=== PATIENT | male | born 1995 | race Caucasian/White ===

== ENCOUNTER 2016-06-21 16:08 | Emergency (ER) | payer SELFPAY ==
--- NOTE | 2016-06-21 18:01 | EDM.PDOC ---
ED HPI GI/ABDOMINAL - General Chief Complaint: Gastrointestinal Problem Stated Complaint: RECTAL BLEEDING Time Seen by Provider: 06/21/16 17:20 Source of Information: Reports: Patient History Limitations: Reports: No limitations - History of Present Illness INITIAL COMMENTS - FREE TEXT/NARRATIVE: Patient is a 21-year-old male who presents to the ED complaining of rectal bleeding. Patient states approximately 5 days ago after having a large bowel movement described as being hard, requiring straining, and painful he had noted blood with wiping. States since then he's noticed blood with wiping and on the stool after each bowel movement. Notes increased pain which each bowel movement. Continues to have hard formed stools with straining required. Describes the pain to his rectum as a burning sensation. He utilized no over- the-counter medications. He has no prior history of similar symptoms. He has no history of hemorrhoids. In addition has intermittent abdominal cramping prior to having a bowel movement. This relieved with having a bowel movement. Denies any nausea/vomiting, painful urination, fever/chills, or any additional complaints. 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 [No Known Home Meds] 06/21/16 [History] Past Medical History HEENT History: Reports: Impaired vision Other HEENT History: glassess Cardiovascular History: Reports: Other (see below) Other Cardiovascular History: Patient states "5 years ago I had a minor heart attack. I was supposed to follow up with a concrete handler but I didnt. I have an irregular heart rhythm." Musculoskeletal History: Reports: Other (see below) Other Musculoskeletal History: "Broken foot, ankle, tib/fib" - Infectious Disease History Infectious Disease History: Reports: C-difficile Social & Family History - Tobacco Use Smoking Status *Q: Current Every Day Smoker Years of Tobacco use: 6 Packs/Tins Daily: 0.5 - Caffeine Use Caffeine Use: Reports: None - Recreational Drug Use Recreational Drug Use: No ED ROS GENERAL - Review of Systems Review Of Systems: See Below Constitutional: Denies: fever, chills, malaise, weakness, decreased appetite Respiratory: Denies: Shortness of Breath, Cough, Sputum Cardiovascular: Denies: Chest pain, Lightheadedness, Palpitations GI/Abdominal: Reports: Bloody stool, Constipation. Denies: Abdominal pain ( currently), Black stool, Decreased appetite, Distension, Flatus, Melena, Nausea , Stool incontinence, Vomiting : Reports: no symptoms Musculoskeletal: Reports: no symptoms ED EXAM, GI/ABD - Physical Exam Exam: See Below Exam Limited By: No limitations General Appearance: alert, WD/WN, no apparent distress Ears: hearing grossly normal Nose: normal inspection Throat/Mouth: Normal voice, No airway compromise Neck: normal inspection, supple Respiratory/Chest: no respiratory distress, lungs clear, normal breath sounds, no accessory muscle use Cardiovascular: normal peripheral pulses, regular rate, rhythm GI/Abdominal: normal bowel sounds, soft, non tender Rectal (Males) Exam: Normal exam, Normal rectal tone, Prostate normal, Heme - stool, Tenderness (rectum 6 oclock). No: Hemorrhoids, Perirectal abscess Back Exam: normal inspection, full range of motion. No: CVA tenderness (L), CVA tenderness (R) Neurological: alert, oriented, CN II-XII intact, normal cognition Psychiatric: normal affect, normal mood Skin Exam: Warm, Dry, Intact, Normal color Course - Vital Signs Last Recorded V/S: Last Vital Signs Temp Pulse 90 06/21/16 16:16 Resp 16 06/21/16 16:16 BP 138/81 06/21/16 16:16 Pulse Ox 98 06/21/16 16:16 - Re-Assessments/Exams Free Text/Narrative Re-Assessment/Exam: Exam elicited mild pain to the posterior rectum. No concerning external findings noted. Hemoccult was negative. Findings and history consistent with mild rectal tear 2nd to constipation. No further testing or treatment required. Will discharge home with instructions as documented. 06/21/16 17:59 Departure - Departure Time of Disposition: 18:01 Disposition: Home, Self-Care 01 Condition: good Clinical Impression: Anal or rectal pain, Bleeding per rectum Constipation Qualifiers: Constipation type: unspecified constipation type Qualified Code(s): K59.00 - Constipation, unspecified Instructions: Constipation, Adult, Fozi-of-Hjej Referrals: PCP,None [Primary Care Provider] - Abel Montilla PA-C [Physician Division Chair] - Joseph Pena MD [Physician] - Forms: ED Department Discharge Additional Instructions: Start taking MiraLax one capful daily with copious amounts of water for the next 6 weeks. Take Colace 100 mg twice a day for the next 5 days. Increase fiber intake. Increase exercise. Followup with primary care provider of your choice at [facility] in the next week or two for further evaluation and treatment. If symptoms are not improving suggest following up with Dr. Pena General Surgeon. Return to the E.D. as needed for any new or worsening symptoms. Stop smoking.
== END 2016-06-21 18:30 | disposition home or self-care (01) ==
LOC: JD.ED 16:08
CPT/HCPCS: 99282; 99283

== ENCOUNTER 2016-10-11 19:33 | Emergency (ER) | payer MEDICAID ==
[2016-10-11 19:40] VITALS: BP 142/80
[2016-10-11] MEDS ORDERED: Famotidine 20 MG/2 ML SDV IVPUSH ONE (19:48)
--- NOTE | 2016-10-11 19:48 | EDM.PDOC ---
ED HPI GENERAL MEDICAL PROBLEM - General Chief Complaint: Abdominal Pain Stated Complaint: [facility] Time Seen by Provider: 10/11/16 19:41 - History of Present Illness INITIAL COMMENTS - FREE TEXT/NARRATIVE: 21-year-old male presents emergency room intoxicated complaining of belly pain. Patient drinks on a regular basis has been perhaps drinking more so today however he's been off his stomach medications for the last for 5 days. The stomach medications he was taking he cannot recall the name of he got them from a friend. The patient was post as stomach surgery over a month ago in [place] but couldn't get there for it. The patient hasn't had any recent nausea or vomiting diarrhea or constipation patient denies any recent black or tarry stools however he states about a month and a half ago he did have an episode where his vomiting some blood. This is not occurred on a recent basis patient denies any drugs prescription or otherwise at this time other than his alcohol that he uses daily. Abdominal Pain Score (Numeric/FACES): 6 - Related Data Allergies Allergy/AdvReac Type Severity Reaction Status Date / Time No Known Allergies Allergy Verified 10/11/16 19:36 Home Meds: Home Meds . [No Known Home Meds] 06/21/16 [History] Past Medical History HEENT History: Reports: Impaired Vision Other HEENT History: glassess Cardiovascular History: Reports: Other (See Below) Other Cardiovascular History: Patient states "5 years ago I had a minor heart attack. I was supposed to follow up with a gas station service attendant but I didnt. I have an irregular heart rhythm." Musculoskeletal History: Reports: Other (See Below) Other Musculoskeletal History: "Broken foot, ankle, tib/fib" - Infectious Disease History Infectious Disease History: Reports: C-Difficile Social & Family History - Tobacco Use Smoking Status *Q: Current Every Day Smoker Years of Tobacco use: 6 Packs/Tins Daily: 0.5 - Caffeine Use Caffeine Use: Reports: None - Recreational Drug Use Recreational Drug Use: No ED ROS GENERAL - Review of Systems Review Of Systems: See Below Constitutional: Reports: No Symptoms HEENT: Reports: No Symptoms Respiratory: Reports: No Symptoms Cardiovascular: Reports: No Symptoms Endocrine: Reports: No Symptoms GI/Abdominal: Reports: Abdominal Pain. Denies: Constipation, Diarrhea, Nausea, Vomiting : Reports: No Symptoms Psychiatric: Denies: Homicidal Ideation, Mood Lability, Suicidal Ideation ED EXAM, GI/ABD - Physical Exam Exam: See Below Exam Limited By: Intoxication General Appearance: Alert, No Apparent Distress Ears: Normal External Exam, Normal Canal, Hearing Grossly Normal, Normal TMs Nose: Normal Inspection, Normal Mucosa, No Blood Throat/Mouth: Normal Inspection, Normal Lips, Normal Teeth, Normal Gums, Normal Oropharynx, Normal Voice, No Airway Compromise Head: Atraumatic, Normocephalic Neck: Normal Inspection, Supple, Non-Tender, Full Range of Motion Respiratory/Chest: No Respiratory Distress, Lungs Clear, Normal Breath Sounds Cardiovascular: Regular Rate, Rhythm, No Edema, No Murmur GI/Abdominal: Normal Bowel Sounds, Soft, Tenderness (She has significant tenderness in the epigastric and left upper quadrant region). No: Distention, Guarding, Rebound Back Exam: Normal Inspection, Full Range of Motion. No: CVA Tenderness (L), CVA Tenderness (R) Extremities: Normal Inspection, No Pedal Edema Neurological: Alert, Oriented Course - Vital Signs Last Recorded V/S: Last Vital Signs Temp 36.6 C 10/11/16 19:36 Pulse 117 H 10/11/16 19:36 Resp 20 10/11/16 19:36 BP 142/80 H 10/11/16 19:36 Pulse Ox 96 10/11/16 19:36 - Orders/Labs/Meds Labs: Laboratory Tests 10/11/16 10/11/16 Range/Units 19:59 19:59 WBC 9.23 H (4.23-9.07) K/mm3 RBC 5.60 (4.63-6.08) M/mm3 Hgb 17.7 H (13.7-17.5) gm/L Hct 49.1 (40.1-51.0) % MCV 87.7 (79.0-92.2) fl MCH 31.6 (25.7-32.2) pg MCHC 36.0 H (32.2-35.5) g/dl RDW Std Deviation 42.0 (35.1-43.9) fL Plt Count 249 (163-337) K/mm3 MPV 10.5 (9.4-12.3) fl Neutrophils % (Manual) 67 H (40-60) % Band Neutrophils % 1 (0-10) % Lymphocytes % (Manual) 26 (20-40) % Atypical Lymphs % 0 % Monocytes % (Manual) 5 (2-10) % Eosinophils % (Manual) 1 (0.8-7.0) % Basophils % (Manual) 0 L (0.2-1.2) Platelet Estimate Adequate RBC Morph Comment Normal Sodium 144 (136-145) mEq/L Potassium 3.4 L (3.5-5.1) mEq/L Chloride 105 (98-107) mEq/L Carbon Dioxide 27 (21-32) mEq/L Anion Gap 15.4 H (5-15) BUN 7 (7-18) mg/dL Creatinine 1.1 (0.7-1.3) mg/dL Est Cr Clr Drug Dosing 107.12 mL/min Estimated GFR (MDRD) > 60 (>60) mL/min BUN/Creatinine Ratio 6.4 L (14-18) Glucose 110 H (74-106) mg/dL Calcium 8.4 L (8.5-10.1) mg/dL Total Bilirubin 0.6 (0.2-1.0) mg/dL AST 34 (15-37) U/L ALT 51 (16-63) U/L Alkaline Phosphatase 88 (46-116) U/L Total Protein 8.3 H (6.4-8.2) g/dl Albumin 4.5 (3.4-5.0) g/dl Globulin 3.8 gm/dL Albumin/Globulin Ratio 1.2 (1-2) Lipase 122 (73-393) U/L Acetaminophen 0 L (10-30) ug/mL Ethyl Alcohol 0.29 (0.00) gm% Meds: Medications Discontinued Medications Generic Name Dose Route Start Last Admin Trade Name Freq PRN Reason Stop Dose Admin Al Hydroxide/Mg Hydroxide 30 0 ml 10/11/16 19:49 10/11/16 20:09 ml/ Lidocaine HCl 15 ml PO 10/11/16 19:50 45 ml ONETIME ONE Administration Famotidine 20 mg 10/11/16 19:48 10/11/16 20:05 Pepcid IVPUSH 10/11/16 19:49 20 mg ONETIME ONE Administration Lactated Ringer's 1,000 mls @ 999 mls/hr 10/11/16 19:49 10/11/16 20:04 Ringers, Lactated IV 10/11/16 20:49 999 mls/hr .BOLUS ONE Administration Ondansetron HCl 4 mg 10/11/16 19:49 10/11/16 20:04 Zofran IVPUSH 10/11/16 19:50 4 mg ONETIME ONE Administration Sucralfate 1 gm 10/11/16 21:14 10/11/16 21:29 Carafate PO 10/11/16 21:15 1 gm ONETIME ONE Administration - Re-Assessments/Exams Free Text/Narrative Re-Assessment/Exam: 10/11/16 21:12 His labs aren't especially helpful his blood alcohol is 0.29 Tylenol 0.0. At this point the patient denies having a responsible adult to come pick him up. He reported some improvement after the GI cocktail but his pain is not completely gone yet. 10/11/16 23:01 Patient has done well here in the emergency department he's been able to eat and keep fluids down his belly pain is improved. He received a GI cocktail and 20 mg of famotidine. He will be discharged most likely to the custodial unless we can find a sober acquaintance that will watch him through the night as he is homeless. He'll be discharged with instructions to take famotidine 20 mg twice daily. Departure - Departure Time of Disposition: 23:03 Disposition: Home, Self-Care 01 Clinical Impression: Alcohol intoxication, Dyspepsia - Discharge Information Forms: ED Department Discharge Additional Instructions: Return to the emergency room with any questions problems worsening symptoms. Try famotidine 20 mg twice daily. This is the generic equivalent to Pepcid. It can be obtained [id number]. Follow-up in the Hospital clinic in 1 week for recheck. [phone]
[2016-10-11] MEDS ORDERED: Ondansetron 4 MG/2 ML SDV IVPUSH ONE (19:49)
[2016-10-11] MEDS ORDERED: Lactated Ringers 1,000 ML IV ONE (19:49)
[2016-10-11] MEDS ORDERED: Alum Hydrox/Mag Hydrox/Simeth 30 ML, Lidocaine 2% 15 ML PO ONE ×2 (19:49)
[2016-10-11 20:30] LABS: ACETAMINOPHEN 0 ug/mL (10-30)
[2016-10-11] MEDS ORDERED: Sucralfate Suspension 1 GM/10 ML Cup PO ONE (21:14)
== END 2016-10-12 06:29 | disposition home or self-care (01) ==
LOC: JD.ED 19:33
DX: R10.13 Epigastric pain (principal); F10.129 Alcohol abuse with intoxication, unspecified; F17.210 Nicotine dependence, cigarettes, uncomplicated; Y90.1 Blood alcohol level of 20-39 mg/100 ml
CPT/HCPCS: 36415; 80053; 83690; 85025; 96361; 96374; 96375; 99284; A9270; G0480; J2405; J7120; 99283

== ENCOUNTER 2017-03-21 18:46 | Emergency (ER) | payer SELFPAY ==
[2017-03-21 19:32] VITALS: BP 105/72
--- NOTE | 2017-03-21 20:11 | EDM.PDOC ---
ED HPI GENERAL MEDICAL PROBLEM - General Chief Complaint: Upper Extremity Injury/Pain Stated Complaint: SOB POSS RIGHT ARM INFECTION Time Seen by Provider: 03/21/17 20:10 - History of Present Illness INITIAL COMMENTS - FREE TEXT/NARRATIVE: 21-year-old male presents emergency room not feeling right. Patient is worried as he was injecting meth yesterday into his left arm and he missed his arm now feels funny and he has developed a strange abdominal discomfort he has no chest pain breathing difficulties or shortness of breath. He has not had any fevers or chills. He's had no nausea or vomiting. His arm is a little sore today he's had no erythema or swelling. Right Middle Arm Pain Score (Numeric/FACES): 4 - Related Data Allergies Allergy/AdvReac Type Severity Reaction Status Date / Time No Known Allergies Allergy Verified 03/21/17 19:33 Home Meds: Home Meds . [No Known Home Meds] 06/21/16 [History] Past Medical History HEENT History: Reports: Impaired Vision Other HEENT History: glassess Cardiovascular History: Reports: Other (See Below) Other Cardiovascular History: Patient states "5 years ago I had a minor heart attack. I was supposed to follow up with a pulley worker but I didnt. I have an irregular heart rhythm." Gastrointestinal History: Reports: Other (See Below) Other Gastrointestinal History: ulcers Musculoskeletal History: Reports: Other (See Below) Other Musculoskeletal History: "Broken foot, ankle, tib/fib" Psychiatric History: Reports: Addiction, Depression - Infectious Disease History Infectious Disease History: Reports: C-Difficile - Past Surgical History GI Surgical History: Reports: None Social & Family History - Family History Family Medical History: Noncontributory - Tobacco Use Smoking Status *Q: Current Every Day Smoker Years of Tobacco use: 4 Packs/Tins Daily: 0.5 - Caffeine Use Caffeine Use: Reports: None - Recreational Drug Use Recreational Drug Use: Yes Drug Use in Last 12 Months: Yes Recreational Drug Type: Reports: Methamphetamine Recreational Drug Use Frequency: Weekly Review of Systems - Review of Systems Review Of Systems: See Below Constitutional: Reports: Other (He just doesn't feel right) Eyes: Reports: No Symptoms Ears: Reports: No Symptoms Nose: Reports: No Symptoms Mouth/Throat: Reports: No Symptoms Respiratory: Reports: No Symptoms Cardiovascular: Reports: No Symptoms GI/Abdominal: Reports: Abdominal Pain, Nausea. Denies: Decreased Appetite, Diarrhea, Vomiting Genitourinary: Reports: No Symptoms Musculoskeletal: Reports: No Symptoms Skin: Reports: Other Neurological: Reports: No Symptoms (He has some discomfort on his arm) ED EXAM, GENERAL - Physical Exam Exam: See Below Exam Limited By: No Limitations General Appearance: Alert, No Apparent Distress Eye Exam: Bilateral Eye: Normal Inspection Ears: Normal External Exam, Normal Canal, Normal TMs Nose: Normal Inspection, Normal Mucosa Throat/Mouth: Normal Inspection, Normal Lips, Normal Gums, Normal Oropharynx, Normal Voice, No Airway Compromise Head: Atraumatic, Normocephalic Neck: Normal Inspection. No: Lymphadenopathy (L), Lymphadenopathy (R) Respiratory/Chest: No Respiratory Distress, Lungs Clear, Normal Breath Sounds Cardiovascular: Regular Rate, Rhythm, No Edema, No Murmur GI/Abdominal: Normal Bowel Sounds, Soft, Non-Tender, Other (He has a vague sensation across his abdomen he has a hard time describing it but his exam is otherwise unremarkable). No: Distended, Guarding, Rigid, Rebound, Tender Back Exam: Normal Inspection. No: CVA Tenderness (L), CVA Tenderness (R) Extremities: Other (No [place] lesions) Psychiatric: Normal Affect Skin Exam: Other (No [place] lesions) Lymphatic: No Adenopathy Course - Vital Signs Last Recorded V/S: Last Vital Signs Temp 36.7 C 03/21/17 19:27 Pulse 115 H 03/21/17 19:27 Resp 13 03/21/17 19:27 BP 105/72 03/21/17 19:27 Pulse Ox 100 03/21/17 19:27 - Orders/Labs/Meds Orders: Active Orders 24 hr Category Date Time Status EKG Documentation Completion [RC] STAT Care 03/21/17 20:24 Active CRP, HIGH SENSITIVITY [REF] Stat Lab 03/21/17 21:04 Stop Req CULTURE BLOOD [BC] Stat Lab 03/21/17 21:04 Received CULTURE BLOOD [BC] Stat Lab 03/21/17 21:38 Received Blood Culture x2 Reflex Set [OM.PC] Stat Oth 03/21/17 20:26 Ordered Labs: Laboratory Tests 03/21/17 03/21/17 03/21/17 Range/Units 21:04 21:04 21:04 WBC 13.65 H (4.23-9.07) K/mm3 RBC 5.51 (4.63-6.08) M/mm3 Hgb 16.9 (13.7-17.5) gm/L Hct 47.0 (40.1-51.0) % MCV 85.3 (79.0-92.2) fl MCH 30.7 (25.7-32.2) pg MCHC 36.0 H (32.2-35.5) g/dl RDW Std Deviation 38.8 (35.1-43.9) fL Plt Count 253 (163-337) K/mm3 MPV 11.0 (9.4-12.3) fl Neutrophils % (Manual) 77 H (40-60) % Band Neutrophils % 0 (0-10) % Lymphocytes % (Manual) 15 L (20-40) % Atypical Lymphs % 1 % Monocytes % (Manual) 6 (2-10) % Eosinophils % (Manual) 0 L (0.8-7.0) % Basophils % (Manual) 1 (0.2-1.2) Platelet Estimate Adequate Plt Morphology Comment Normal RBC Morph Comment Normal ESR 10 (0-15) mm/hr C-Reactive Protein 5.7 H* (<1.0) mg/dL Urine Color (Yellow) Urine Appearance (Clear) Urine pH (5.0-8.0) Ur Specific [place] (1.005-1.030) Urine Protein (Negative) Urine Glucose (UA) (Negative) Urine Ketones (Negative) Urine Occult Blood (Negative) Urine Nitrite (Negative) Urine Bilirubin (Negative) Urine Urobilinogen (0.2-1.0) Ur Leukocyte Esterase (Negative) Urine RBC (0-5) /hpf Urine WBC (0-5) /hpf Ur Epithelial Cells (0-5) /hpf Urine Bacteria (FEW) /hpf Hyaline Casts (0-5) /lpf Urine Mucus (FEW) /hpf 03/21/17 Range/Units 23:45 WBC (4.23-9.07) K/mm3 RBC (4.63-6.08) M/mm3 Hgb (13.7-17.5) gm/L Hct (40.1-51.0) % MCV (79.0-92.2) fl MCH (25.7-32.2) pg MCHC (32.2-35.5) g/dl RDW Std Deviation (35.1-43.9) fL Plt Count (163-337) K/mm3 MPV (9.4-12.3) fl Neutrophils % (Manual) (40-60) % Band Neutrophils % (0-10) % Lymphocytes % (Manual) (20-40) % Atypical Lymphs % % Monocytes % (Manual) (2-10) % Eosinophils % (Manual) (0.8-7.0) % Basophils % (Manual) (0.2-1.2) Platelet Estimate Plt Morphology Comment RBC Morph Comment ESR (0-15) mm/hr C-Reactive Protein (<1.0) mg/dL Urine Color Yellow (Yellow) Urine Appearance Clear (Clear) Urine pH 7.0 (5.0-8.0) Ur Specific [place] 1.020 (1.005-1.030) Urine Protein 1+ H (Negative) Urine Glucose (UA) Negative (Negative) Urine Ketones 1+ H (Negative) Urine Occult Blood Negative (Negative) Urine Nitrite Negative (Negative) Urine Bilirubin 2+ H (Negative) Urine Urobilinogen >=8.0 H (0.2-1.0) Ur Leukocyte Esterase Trace H (Negative) Urine RBC Not seen (0-5) /hpf Urine WBC 0-5 (0-5) /hpf Ur Epithelial Cells 0-5 (0-5) /hpf Urine Bacteria Few (FEW) /hpf Hyaline Casts 0-5 (0-5) /lpf Urine Mucus Many H (FEW) /hpf - Re-Assessments/Exams Free Text/Narrative Re-Assessment/Exam: 03/22/17 00:34 Awaiting urinalysis initially when his labs were ordered I thought I ordered a CBC but that did not go through this is been added patient is otherwise doing well 03/22/17 01:02 All labs are back sedimentation rate normal C-reactive protein elevated at 5 urinalysis mostly normal no hematuria no red cell casts no signs of infection. Blood cultures pending white count slightly elevated at 13,000 fairly normal differential. No fever no heart murmur it is unlikely he has infectious endocarditis. Workup was proceeded with this vague symptoms of just not feeling right and his abdominal pain. Interestingly his abdominal pain seems to have resolved at this point. I discussed the importance of close follow-up in the clinic with the patient he agrees to follow-up in the clinic early this next week. Departure - Departure Time of Disposition: 01:04 Disposition: Home, Self-Care 01 Clinical Impression: IV drug abuse - Discharge Information Referrals: PCP,None [Primary Care Provider] - Forms: ED Department Discharge Additional Instructions: Return to emergency room if any questions problems or worsening symptoms. Follow-up in the Hospital clinic on Monday. [phone] - My Orders Last 24 Hours: My Active Orders 03/21/17 20:24 EKG Documentation Completion [RC] STAT 03/21/17 20:26 Blood Culture x2 Reflex Set [OM.PC] Stat 03/21/17 21:04 CRP, HIGH SENSITIVITY [REF] Stat CULTURE BLOOD [BC] Stat 03/21/17 21:38 CULTURE BLOOD [BC] Stat - Assessment/Plan Last 24 Hours: My Active Orders 03/21/17 20:24 EKG Documentation Completion [RC] STAT 03/21/17 20:26 Blood Culture x2 Reflex Set [OM.PC] Stat 03/21/17 21:04 CRP, HIGH SENSITIVITY [REF] Stat CULTURE BLOOD [BC] Stat 03/21/17 21:38 CULTURE BLOOD [BC] Stat
== END 2017-03-22 01:10 | disposition home or self-care (01) ==
LOC: JD.ED 18:46
DX: F15.10 Other stimulant abuse, uncomplicated (principal); F17.210 Nicotine dependence, cigarettes, uncomplicated
CPT/HCPCS: 36415; 81001; 85025; 85652; 86140; 86141; 87040; 93005; 93010; 99283; 99285-25

== ENCOUNTER 2018-07-03 06:26 | Emergency (ER) | payer SELFPAY ==
[2018-07-03 06:43] VITALS: BP 134/79
[2018-07-03] MEDS ORDERED: Penicillin V Potassium 500 MG Tab PO ONE (07:19)
[2018-07-03] MEDS ORDERED: Ibuprofen 600 MG Tab PO ONE (07:19)
--- NOTE | 2018-07-03 07:25 | EDM.PDOC ---
ED HPI GENERAL MEDICAL PROBLEM - General Chief Complaint: ENT Problem Stated Complaint: RIGHT SIDE OF FACE SWOLLEN Time Seen by Provider: 07/03/18 07:02 Source of Information: Reports: Patient, RN Notes Reviewed, Significant Other ( Girlfriend) History Limitations: Reports: No Limitations - History of Present Illness INITIAL COMMENTS - FREE TEXT/NARRATIVE: The patient states that he developed a lower right toothache and facial swelling yesterday morning, which got progressively worse over the course of yesterday and last night. No recent fever. No recent oral drainage. No prior similar symptoms. The patient states that he has taken Tylenol and an antiseptic mouthwash, without relief of his symptoms. The patient does not have a PCP. Right Lower Tooth/Teeth Pain Score (Numeric/FACES): 8 - Related Data Allergies Allergy/AdvReac Type Severity Reaction Status Date / Time No Known Allergies Allergy Verified 07/03/18 06:41 Home Meds: Home Meds Acetaminophen [Tylenol] 650 mg PO ONCALL PRN 07/03/18 [History] Penicillin V Potassium 500 mg PO Q6HR #40 tab 07/03/18 [Rx] Past Medical History HEENT History: Reports: Impaired Vision Other HEENT History: wears glasses Musculoskeletal History: Reports: Fracture (left tib/fib, left ankle, left foot) - Infectious Disease History Infectious Disease History: Reports: C-Difficile Social & Family History - Family History Family Medical History: Noncontributory - Tobacco Use Smoking Status *Q: Current Every Day Smoker Years of Tobacco use: 5 Packs/Tins Daily: 0.5 Packs/Tins Daily Comment: Down from 1 ppd - Caffeine Use Caffeine Use: Reports: Soda - Alcohol Use Alcohol Use History: Yes Alcohol Use Frequency: Socially - Recreational Drug Use Recreational Drug Use: Yes Drug Use in Last 12 Months: No Recreational Drug Type: Reports: Marijuana/Hashish (last smoked 2016), Methamphetamine (last smoked 2017) - Living Situation & Occupation Living situation: Reports: Single, Alone Occupation: Unemployed ED ROS ENT - Review of Systems Review Of Systems: ROS reveals no pertinent complaints other than HPI. ED EXAM, ENT - Physical Exam Exam: See Below Exam Limited By: No Limitations General Appearance: Alert, WD/WN, No Apparent Distress Eye Exam: Bilateral Eye: EOMI, Normal Inspection Ears: Normal External Exam, Normal Canal, Hearing Grossly Normal, Normal TMs Nose: Normal Inspection, Normal Mucousa, No Blood Mouth/Throat: Normal Inspection, Normal Gums (including lower right - no swelling or pointing), Normal Lips, Normal Oropharynx, Normal Teeth (patient indicated pain to tooth #32 - normal appearance) Head: Atraumatic, Normocephalic Neck: Normal Inspection, Supple, Non-Tender, Full Range of Motion. No: Lymphadenopathy (L), Lymphadenopathy (R) Neurological: Alert, Oriented, Normal Cognition, No Motor/Sensory Deficits Psychiatric: Normal Affect Skin: Warm, Dry, Intact, Normal Color, No Rash Course - Vital Signs Last Recorded V/S: Last Vital Signs Temp 36.2 C 07/03/18 06:42 Pulse 88 07/03/18 06:42 Resp 18 07/03/18 06:42 BP 134/79 07/03/18 06:42 Pulse Ox 99 07/03/18 06:42 - Orders/Labs/Meds Orders: Active Orders 24 hr Category Date Time Status Ibuprofen [Motrin] Med 07/03/18 07:19 Once 600 mg PO ONETIME ONE Penicillin V Potassium [Veetids] Med 07/03/18 07:19 Once 500 mg PO ONETIME ONE - Re-Assessments/Exams Free Text/Narrative Re-Assessment/Exam: 07/03/18 07:20 Although the patient feels that the right side of his face is swollen, on physical examination, I do not actually see any swelling, and an oral examination, I see no gingival swelling or pointing. Nevertheless, given the patient's description of pain, he likely has a dental infection of tooth #32. I will start the patient on penicillin and ibuprofen, and prescribe a 10-day course of penicillin. The patient will be discharged home with a list of local dentists. Departure - Departure Time of Disposition: 07:21 Disposition: Home, Self-Care 01 Condition: Good Clinical Impression: Dental infection - Discharge Information *PRESCRIPTION DRUG MONITORING PROGRAM REVIEWED*: Not Applicable *COPY OF PRESCRIPTION DRUG MONITORING REPORT IN PATIENT ALICIA: Not Applicable Referrals: PCP,None [Primary Care Provider] - Additional Instructions: You were seen in the emergency room for a right lower toothache and the sensation of right facial swelling. Based on your history and physical examination, you are most likely suffering from a dental infection of your lower right third molar (tooth #32). You have been started on the antibiotic penicillin. A prescription for penicillin has been sent to the [facility], located in the [facility] grocery store. Take one tablet of penicillin every 6 hours, as prescribed. Finish the entire prescription unless told otherwise by a dentist. You have been started on the anti-inflammatory medicine ibuprofen. Ibuprofen is available [id number]. Take 2-3 tablets(400-600 mg) of ibuprofen, with food , up to every 8 hours, as needed for pain. As discussed, it is essential that you follow-up with a dentist within the next 10 days. A list of local dentists has been provided to you. If any other problems, please do not hesitate to return to the ER. - My Orders Last 24 Hours: My Active Orders 07/03/18 07:19 Ibuprofen [Motrin] 600 mg PO ONETIME ONE Penicillin V Potassium [Veetids] 500 mg PO ONETIME ONE - Assessment/Plan Last 24 Hours: My Active Orders 07/03/18 07:19 Ibuprofen [Motrin] 600 mg PO ONETIME ONE Penicillin V Potassium [Veetids] 500 mg PO ONETIME ONE
== END 2018-07-03 07:30 | disposition home or self-care (01) ==
LOC: JD.ED 06:26
DX: K04.7 Periapical abscess without sinus (principal); F17.210 Nicotine dependence, cigarettes, uncomplicated
CPT/HCPCS: 99282; A9270; 99283

== ENCOUNTER 2018-09-21 00:45 | Emergency (ER) | payer SELFPAY ==
[2018-09-21 00:54] VITALS: BP 133/88
[2018-09-21] MEDS ORDERED: Ondansetron 4 MG/2 ML SDV IVPUSH ONE (00:55)
[2018-09-21] MEDS ORDERED: Sodium Chloride 0.9% 1,000 ML IV SCH (01:00)
--- NOTE | 2018-09-21 01:00 | EDM.PDOCBH ---
ED HPI GENERAL MEDICAL PROBLEM - General Chief Complaint: Drug or Alcohol Abuse Stated Complaint: ACTING STRANGE Time Seen by Provider: 09/21/18 00:49 Source of Information: Reports: Patient, Significant Other (Girlfriend) History Limitations: Reports: Altered Mental Status - History of Present Illness INITIAL COMMENTS - FREE TEXT/NARRATIVE: The patient's girlfriend tells me that the patient has been drinking beer since around 14:00 yesterday, , 09/20/2018. The patient states that he drank approximately 24 beers. The patient's girlfriend went to bed around 22:00 or 23: 00, by which time the patient was already intoxicated. She states that she woke sometime after midnight with the patient lying next to her saying "Help?" She had some family members check the patient out, finding him to be very lethargic , and decided to bring him to the ED. The patient states that he took 3 tablets of Xanax 2 mg about an hour prior to coming to the ED. He states that he acquired the Xanax on the street, and he denies that he took them to harm himself. He states that he just took them to make him feel relaxed. He denies previously abusing Xanax. The patient does not have a PCP. - Related Data Allergies Allergy/AdvReac Type Severity Reaction Status Date / Time No Known Allergies Allergy Verified 09/21/18 00:51 Home Meds: Home Meds Acetaminophen [Tylenol] 650 mg PO ONCALL PRN 07/03/18 [History] Penicillin V Potassium 500 mg PO Q6HR #40 tab 07/03/18 [Rx] Past Medical History HEENT History: Reports: Impaired Vision Other HEENT History: wears glasses Musculoskeletal History: Reports: Fracture (left tib/fib, left ankle, left foot) Psychiatric History: Reports: Addiction (alcohol), Depression (untreated) - Infectious Disease History Infectious Disease History: Reports: C-Difficile Social & Family History - Family History Family Medical History: Noncontributory - Tobacco Use Smoking Status *Q: Current Every Day Smoker Years of Tobacco use: 5 Packs/Tins Daily: 0.5 Month/Year Tobacco Last Used: Down from 1 ppd - Caffeine Use Caffeine Use: Reports: Soda - Alcohol Use Alcohol Use History: Yes Alcohol Use Frequency: Socially (occasionally to excess) - Recreational Drug Use Recreational Drug Use: Yes Drug Use in Last 12 Months: Yes Recreational Drug Type: Reports: Marijuana/Hashish (last smoked 2016), Methamphetamine (last smoked 2017), Xanax (last abused 09/21/18) - Living Situation & Occupation Living situation: Reports: Single, with Significant Other (Girlfriend) Occupation: Unemployed ED ROS GENERAL - Review of Systems Review Of Systems: ROS reveals no pertinent complaints other than HPI. ED EXAM, BEHAVIORAL HEALTH - Physical Exam Exam: See Below Exam Limited By: Altered Mental Status General Appearance: WD/WN, Lethargic (arousable to verbal stimuli) Eye Exam: Bilateral Eye: Conjunctival Injection, EOMI, PERRL (Pupils about 5 mm , reactive) Ears: Normal External Exam, Hearing Grossly Normal Nose: Normal Inspection Throat/Mouth: Normal Inspection, Normal Lips, No Airway Compromise Head: Atraumatic, Normocephalic Neck: Normal Inspection, Full Range of Motion Respiratory/Chest: No Respiratory Distress, Lungs Clear, Normal Breath Sounds, No Accessory Muscle Use Cardiovascular: Normal Peripheral Pulses, Regular Rate, Rhythm, No Edema, No Gallop, No JVD, No Murmur, No Rub GI/Abdominal: Normal Bowel Sounds, Soft, Non-Tender, No Organomegaly, No Distention, No Abnormal Bruit, No Mass (Male) Exam: Deferred Rectal (Males) Exam: Deferred Back Exam: Normal Inspection, Full Range of Motion, NT Extremities: Normal Inspection, Normal Range of Motion, No Pedal Edema, Normal Capillary Refill Neurological: No Motor/Sensory Deficits, Other (Lethargic, but able to follow commands) Skin Exam: Warm, Dry, Intact, Normal color, No rash EKG INTERPRETATION EKG Date: 09/21/18 Time: 00:49 Rhythm: Other (Sinus tachycardia) Rate (Beats/Min): 105 [place]: Normal P-Wave: Present QRS: Normal ST-T: Normal QT: Normal Comparison: No Change (03/21/2017) COURSE, BEHAVIORAL HEALTH COMP - Course Vital Signs: Last Vital Signs Temp 36.5 C 09/21/18 00:51 Pulse 105 H 09/21/18 00:51 Resp 17 09/21/18 00:51 BP 133/88 09/21/18 00:51 Pulse Ox 98 09/21/18 00:51 Orders, Labs, Meds: Active Orders 24 hr Category Date Time Status EKG Documentation Completion [RC] STAT Care 09/21/18 00:55 Active Sodium Chloride 0.9% [Normal Saline] 1,000 ml Med 09/21/18 01:00 Active IV ASDIRECTED Medication Orders Sodium Chloride (Normal Saline) 1,000 mls @ 150 mls/hr IV ASDIRECTED ALMITA Last Admin: 09/21/18 01:01 Dose: 150 mls/hr Laboratory Tests 09/21/18 09/21/18 09/21/18 Range/Units 00:57 01:03 01:03 WBC 12.15 H (4.23-9.07) K/mm3 RBC 5.40 (4.63-6.08) M/mm3 Hgb 16.5 (13.7-17.5) gm/L Hct 46.0 (40.1-51.0) % MCV 85.2 (79.0-92.2) fl MCH 30.6 (25.7-32.2) pg MCHC 35.9 H (32.2-35.5) g/dl RDW Std Deviation 38.3 (35.1-43.9) fL Plt Count 278 (163-337) K/mm3 MPV 10.5 (9.4-12.3) fl Neutrophils % (Manual) 72 H (40-60) % Band Neutrophils % 0 (0-10) % Lymphocytes % (Manual) 24 (20-40) % Atypical Lymphs % 0 % Monocytes % (Manual) 4 (2-10) % Eosinophils % (Manual) 0 L (0.8-7.0) % Basophils % (Manual) 0 L (0.2-1.2) Platelet Estimate Adequate RBC Morph Comment Normal Sodium 138 (136-145) mEq/L Potassium 3.6 (3.5-5.1) mEq/L Chloride 100 (98-107) mEq/L Carbon Dioxide 28 (21-32) mEq/L Anion Gap 13.6 (5-15) BUN 8 (7-18) mg/dL Creatinine 1.0 (0.7-1.3) mg/dL Est Cr Clr Drug Dosing TNP Estimated GFR (MDRD) > 60 (>60) mL/min BUN/Creatinine Ratio 8.0 L (14-18) Glucose 99 (74-106) mg/dL Calcium 9.0 (8.5-10.1) mg/dL Total Bilirubin 0.4 (0.2-1.0) mg/dL AST 40 H (15-37) U/L ALT 68 H (16-63) U/L Alkaline Phosphatase 97 (46-116) U/L Total Protein 8.4 H (6.4-8.2) g/dl Albumin 4.6 (3.4-5.0) g/dl Globulin 3.8 gm/dL Albumin/Globulin Ratio 1.2 (1-2) TSH 3rd Generation 2.292 (0.358-3.74) uIU/mL Salicylates (2.8-20) mg/dL Urine Opiates Screen Negative (CBJXJH=424) Ur Buprenorphine Scrn Negative (CUTOFF=10) Ur Oxycodone Screen Negative (ROU0HG=995) Urine Methadone Screen Negative (QDW1RH=761) Ur Propoxyphene Screen Negative (LZALMG=364) Acetaminophen 0 L (10-30) ug/mL Ur Barbiturates Screen Negative (WLRJZA=042) Ur Tricyclics Screen Negative (UCHCHR=027) Ur Phencyclidine Scrn Negative (CUTOFF=25) Ur Amphetamine Screen Negative (DPWECA=163) U Methamphetamines Scrn Negative (GWGCHP=059) U Benzodiazepines Scrn Presumptive positive H (UCECMO=061) U Cocaine Metab Screen Negative (YZQIXL=362) U Marijuana (THC) Screen Negative (CUTOFF=50) Ethyl Alcohol 0.18 (0.00) gm% 09/21/18 Range/Units 01:03 WBC (4.23-9.07) K/mm3 RBC (4.63-6.08) M/mm3 Hgb (13.7-17.5) gm/L Hct (40.1-51.0) % MCV (79.0-92.2) fl MCH (25.7-32.2) pg MCHC (32.2-35.5) g/dl RDW Std Deviation (35.1-43.9) fL Plt Count (163-337) K/mm3 MPV (9.4-12.3) fl Neutrophils % (Manual) (40-60) % Band Neutrophils % (0-10) % Lymphocytes % (Manual) (20-40) % Atypical Lymphs % % Monocytes % (Manual) (2-10) % Eosinophils % (Manual) (0.8-7.0) % Basophils % (Manual) (0.2-1.2) Platelet Estimate RBC Morph Comment Sodium (136-145) mEq/L Potassium (3.5-5.1) mEq/L Chloride (98-107) mEq/L Carbon Dioxide (21-32) mEq/L Anion Gap (5-15) BUN (7-18) mg/dL Creatinine (0.7-1.3) mg/dL Est Cr Clr Drug Dosing Estimated GFR (MDRD) (>60) mL/min BUN/Creatinine Ratio (14-18) Glucose (74-106) mg/dL Calcium (8.5-10.1) mg/dL Total Bilirubin (0.2-1.0) mg/dL AST (15-37) U/L ALT (16-63) U/L Alkaline Phosphatase (46-116) U/L Total Protein (6.4-8.2) g/dl Albumin (3.4-5.0) g/dl Globulin gm/dL Albumin/Globulin Ratio (1-2) TSH 3rd Generation (0.358-3.74) uIU/mL Salicylates 2.8 (2.8-20) mg/dL Urine Opiates Screen (BATIML=774) Ur Buprenorphine Scrn (CUTOFF=10) Ur Oxycodone Screen (ADG7TD=461) Urine Methadone Screen (RRV7MP=572) Ur Propoxyphene Screen (TLNNSJ=208) Acetaminophen (10-30) ug/mL Ur Barbiturates Screen (CZMYSR=526) Ur Tricyclics Screen (TAUGPC=828) Ur Phencyclidine Scrn (CUTOFF=25) Ur Amphetamine Screen (QWFECK=139) U Methamphetamines Scrn (QALDTE=936) U Benzodiazepines Scrn (UFIHVD=619) U Cocaine Metab Screen (JHLJBJ=241) U Marijuana (THC) Screen (CUTOFF=50) Ethyl Alcohol (0.00) gm% Medications Generic Name Dose Route Start Last Admin Trade Name Freq PRN Reason Stop Dose Admin Sodium Chloride 1,000 mls @ 150 mls/hr 09/21/18 01:00 09/21/18 01:01 Normal Saline IV 150 mls/hr ASDIRECTED ALMITA Administration Discontinued Medications Generic Name Dose Route Start Last Admin Trade Name Freq PRN Reason Stop Dose Admin Ondansetron HCl 4 mg 09/21/18 00:55 09/21/18 01:01 Zofran IVPUSH 09/21/18 00:56 4 mg ONETIME ONE Administration Medical Clearance: 09/21/18 00:56 While it appears at this time that the patient said that he consumed an excess of Xanax and alcohol in an attempt to constitution party, it is also possible that he attempted to harm himself. I have therefore ordered a standard psychiatric medical clearance panel, that includes an alcohol level, a urine drug screen, along with an acetaminophen and salicylate level, and some other tests. At this time, the patient does not require intubation, as he is lethargic but arousable and follows commands. His current oxygen saturation is 100% on room air, although part of that may be because he is being stimulated by the staff and his girlfriend. I have asked the patient's nurse to NOT put supplemental oxygen on him, because if the patient's respiratory status declines, supplemental oxygen can mask hypoventilation, and if the patient begins to hypoventilation, he may require endotracheal intubation. I have ordered IV fluid and IV Zofran; I don't want the patient to vomit and aspirate. 09/21/18 01:45 The patient's CBC is remarkable for WBC count modestly elevated at 12.15, but with 0% bandemia. The remainder of his CBC is unremarkable. His CMP is unremarkable. His TSH is within normal limits. His acetaminophen level is 0. His salicylate level is not elevated. His alcohol level is elevated at 0.18. His urine drug screen is positive for benzodiazepines, but is otherwise negative. 09/21/18 01:53 The patient's clinical condition is roughly about the same, perhaps a bit better. He was able to give me a more cogent history of what happened tonight, which I reflected in his HPI. I explained to the patient's girlfriend that the plan will be to keep the patient here in the ED overnight to sober up. He will likely be able to be discharged in the morning. 09/21/18 07:01 The patient has been sleeping comfortably all night. Earlier in the morning, his oxygen saturation was around 91%, but at present it is 99-100% on room air. He is easily arousable and able to answer questions without difficulty. I'm going to discharge him home. Departure - Departure Time of Disposition: 07:02 Disposition: Home, Self-Care 01 Condition: Good Clinical Impression: Alcohol intoxication, Xanax use disorder, mild, abuse - Discharge Information *PRESCRIPTION DRUG MONITORING PROGRAM REVIEWED*: Not Applicable *COPY OF PRESCRIPTION DRUG MONITORING REPORT IN PATIENT ALICIA: Not Applicable Referrals: PCP,None [Primary Care Provider] - Additional Instructions: You were seen in the emergency room after drinking 24 beers and taking 3 tablets of Xanax, causing you to become extremely lethargic. Workup in the ER included blood work, a urine drug screen, and an ECG. Your urine drug screen was positive for benzodiazepines, and your alcohol level returned elevated at 0.18. For reference, this is two and a quarter times over the legal limit for driving. You were given IV fluid and antinausea medicine in the ER. Stay adequately hydrated. In the future, do not mix alcohol and NSAIDs pains, such as Xanax. If any other problems, please do not hesitate to return to the ER. - My Orders Last 24 Hours: My Active Orders 09/21/18 00:55 EKG Documentation Completion [RC] STAT 09/21/18 01:00 Sodium Chloride 0.9% [Normal Saline] 1,000 ml IV ASDIRECTED - Assessment/Plan Last 24 Hours: My Active Orders 09/21/18 00:55 EKG Documentation Completion [RC] STAT 09/21/18 01:00 Sodium Chloride 0.9% [Normal Saline] 1,000 ml IV ASDIRECTED
[2018-09-21 01:39] LABS: ACETAMINOPHEN 0 ug/mL (10-30)
== END 2018-09-21 07:16 | disposition home or self-care (01) ==
LOC: JD.ED 00:45
DX: F10.229 Alcohol dependence with intoxication, unspecified (principal); F13.10 Sedative, hypnotic or anxiolytic abuse, uncomplicated; F17.210 Nicotine dependence, cigarettes, uncomplicated; Y90.6 Blood alcohol level of 120-199 mg/100 ml
CPT/HCPCS: 36415; 80053; 80306; 84443; 85007; 85027; 93005; 96361; 96374; 99284; G0480; J2405; J7040; 99283

== ENCOUNTER 2018-10-03 19:58 | Emergency (ER) | payer SELFPAY ==
[2018-10-03 20:07] VITALS: BP 134/69
[2018-10-03] MEDS ORDERED: HYDROmorphone 0.5 MG/0.5 ML Syringe IVPUSH ONE (20:12)
[2018-10-03] MEDS ORDERED: Ondansetron 4 MG/2 ML SDV IVPUSH ONE (20:12)
[2018-10-03] MEDS ORDERED: Dextrose 5%-Lactated Ringers 1,000 ML IV SCH (20:15)
--- NOTE | 2018-10-03 20:18 | EDM.PDOC ---
ED HPI GENERAL MEDICAL PROBLEM - General Chief Complaint: Syncope Stated Complaint: [facility] Time Seen by Provider: 10/03/18 20:11 Source of Information: Reports: Patient, Family History Limitations: Reports: Other (Patient has no recollection of what has happened to him.) - History of Present Illness INITIAL COMMENTS - FREE TEXT/NARRATIVE: 23-year-old male presents to the ED per [facility]. The history is difficult to obtain as the patient has no recollection of what has happened to him. He apparently works long hours from 5:00 in the morning until 5:00 PM. Not yet eaten supper tonight. He states he did drink Gatorade throughout most of the day today. It was 84-85 outside today and he does admit to a lot of swelling. He reports that they're ripping carpet out of an old house that they are renovating. Apparently he was carrying out a roll of carpet to the shed from the house when family members got a sudden cough from the neighbor who indicated that Denin, had fallen to the ground and appeared to be suffering seizure activity. When family members arrive they recognize he had a hand up above his head was dazed and confused and could not talk or respond verbally for a period of time. They did not witness any tonic-clonic activity. The patient doesn't remember feeling dizzy or lightheaded before he apparently collapsed. At present he is a diffuse headache and some pain in his cervical spine. Feels generally weak. It's kind of hurts all over. Denies nausea or vomiting. He has never had a seizure before. Currently he is on no medications. Onset: Today Onset Date: 10/03/18 Onset Time: 19:40 Duration: Minutes: Location: Reports: Generalized (Suggestion of sudden collapse while carrying a carpet out to the shed from the house they're renovating. He just finished pulling up the carpet. I.e. working hard and sweating. He has not yet eaten supper today. He has been at work since 5:00 this morning got home around 6. He states that he did drink a fair amount of Gatorade throughout the day today. But admits that he was sweating quite badly. Apparently the neighbor see him collapse and suggestion was that he was suffering a seizure with tonic-clonic activity but the family members did not see this occur. The patient has no recollection of what has happened to him. No past history of seizure disorder. Currently has) Quality: Reports: Ache ( diffuse lower cervical neck pain and a diffuse headache.), Throbbing ( diffuse headache) Severity: Moderate Improves with: Reports: None (7 out of 10) Worsens with: Reports: None Context: Reports: Other (Sudden collapse outside the house while carrying a heavy carpet that he had just tripped up from the floor. Fairly unable to seen him go down and suggest to family members that he was suffering tonic-clonic activity and appeared to be having a seizure. Since the family members got there he was no longer showing any tonic-clonic activity but was very dazed and confused and took at least 5-10 minutes before he could speak. Initially was mumbling. A neighbor had called the paramedics and ambulance.). Denies: Activity, Exercise, Lifting, Sick Contact, Trauma Associated Symptoms: Reports: Confusion, Headaches, Loss of Appetite, Malaise, Weakness. 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 Has received no medications.) Head Pain Score (Numeric/FACES): 10 - Related Data Allergies Allergy/AdvReac Type Severity Reaction Status Date / Time No Known Allergies Allergy Verified 10/03/18 20:05 Home Meds: Home Meds oxyCODONE HCl/Acetaminophen [Percocet 5-325 mg Tablet] 1 - 2 each PO Q4H PRN # 15 tablet 10/03/18 [Rx] Past Medical History HEENT History: Reports: Impaired Vision Other HEENT History: wears glasses Cardiovascular History: Reports: Other (See Below) Other Cardiovascular History: Patient states "5 years ago I had a minor heart attack. I was supposed to follow up with a machine burrer but I didnt. I have an irregular heart rhythm." Gastrointestinal History: Reports: Other (See Below) Other Gastrointestinal History: ulcers Musculoskeletal History: Reports: Fracture Other Musculoskeletal History: "Broken foot, ankle, tib/fib" Psychiatric History: Reports: Addiction, Depression - Infectious Disease History Infectious Disease History: Reports: C-Difficile - Past Surgical History GI Surgical History: Reports: None Social & Family History - Family History Family Medical History: Noncontributory - Tobacco Use Smoking Status *Q: Unknown Ever Smoked - Caffeine Use Caffeine Use: Reports: Soda - Living Situation & Occupation Living situation: Reports: Single, with Significant Other (Girlfriend) Occupation: Unemployed ED ROS GENERAL - Review of Systems Review Of Systems: See Below Constitutional: Reports: Malaise, Weakness, Fatigue, Decreased Appetite. Denies : Fever, Chills HEENT: Reports: No Symptoms Respiratory: Reports: No Symptoms Cardiovascular: Reports: No Symptoms Endocrine: Reports: No Symptoms GI/Abdominal: Reports: No Symptoms : Reports: No Symptoms Musculoskeletal: Reports: Neck Pain (Diffuse lower cervical neck pain), Other Skin: Reports: No Symptoms (States all of his muscles in his legs and lower back seemed to hurt a bit.) Neurological: Reports: Confusion, Headache, Seizure (Syncope versus seizure.), Syncope, Weakness. Denies: Dizziness, Numbness, Tingling (Since collapsing.) Psychiatric: Reports: No Symptoms Hematologic/Lymphatic: Reports: No Symptoms Immunologic: Reports: No Symptoms - Physical Exam Exam: See Below Exam Limited By: No Limitations General Appearance: Alert, WD/WN, Mild Distress, Other (Patient does not recollect what is happened to him. He is able to converse normally at this time. ) Eye Exam: Bilateral Eye: Normal Inspection, PERRL Nose: Normal Inspection, Other (No facial injuries or trauma.) Throat/Mouth: Normal Inspection, Normal Oropharynx, Other (Is to have a dark fluid staining his lips both upper and lower. It has the look of dried blood but there is no active blood appreciated his oral cavity) Head Exam: Atraumatic, Normocephalic. No: Scalp Ecchymosis, Scalp Hematoma, Scalp Tenderness, Facial Ecchymosis, Facial Lacerations, Facial Swelling Neck: Normal Inspection, Supple, Tender Midline (Tender in the midline of his cervical spine particularly 56 and 7 level. No paraspinal muscle tenderness.). No: Lymphadenopathy (L), Lymphadenopathy (R) Respiratory/Chest: No Respiratory Distress, Lungs Clear, Normal Breath Sounds, No Accessory Muscle Use, Chest Non-Tender, Other Cardiovascular: Normal Peripheral Pulses (Compression of his chest wall and sternum gave him no pain.), No Edema, No Gallop, No Murmur, No Rub, Tachycardia GI/Abdominal: Normal Bowel Sounds, Soft, Non-Tender, No Organomegaly, No Abnormal Bruit, No Mass, Pelvis Stable, Other (No apparent abdominal injuries.) . No: Guarding, Rigid, Rebound, Tender Neuro Exam (Abbreviated): Alert, Oriented, CN II-XII Intact, Normal Cognition, Normal Reflexes, No Motor/Sensory Deficits. No: Normal Gait DTR: 2+: Achilles (R), Achilles (L), 3+: Bicep (R), Bicep (L), Patella (R), Patella (L) Back Exam: Normal Inspection, Full Range of Motion. No: CVA Tenderness (L), CVA Tenderness (R), Paraspinal Tenderness, Vertebral Tenderness Extremities: Normal Inspection, Normal Range of Motion, Non-Tender, Other (He states his knee with some muscles in his lower extremities hurt but he has no signs of trauma to the knees or upper extremities also have full range of motion.) Psychiatric: Flat Affect Skin Exam: Warm, Dry, Intact, Normal Color, No Rash Course - Vital Signs Last Recorded V/S: Last Vital Signs Temp 36.8 C 10/03/18 20:05 Pulse 133 H 10/03/18 20:05 Resp 18 10/03/18 20:05 BP 134/69 10/03/18 20:05 Pulse Ox 94 L 10/03/18 20:05 - Orders/Labs/Meds Orders: Active Orders 24 hr Category Date Time Status EKG Documentation Completion [RC] STAT Care 10/03/18 20:15 Active Labs: Laboratory Tests 10/03/18 10/03/18 10/03/18 Range/Units 20:40 20:40 20:40 WBC 13.28 H (4.23-9.07) K/mm3 RBC 4.77 (4.63-6.08) M/mm3 Hgb 14.7 D (13.7-17.5) gm/L Hct 41.9 (40.1-51.0) % MCV 87.8 (79.0-92.2) fl MCH 30.8 (25.7-32.2) pg MCHC 35.1 (32.2-35.5) g/dl RDW Std Deviation 40.4 (35.1-43.9) fL Plt Count 246 (163-337) K/mm3 MPV 10.9 (9.4-12.3) fl Neutrophils % (Manual) 78 H (40-60) % Band Neutrophils % 0 (0-10) % Lymphocytes % (Manual) 17 L (20-40) % Atypical Lymphs % 0 % Monocytes % (Manual) 5 (2-10) % Eosinophils % (Manual) 0 L (0.8-7.0) % Basophils % (Manual) 0 L (0.2-1.2) Platelet Estimate Adequate Plt Morphology Comment Normal RBC Morph Comment Normal Sodium 138 (136-145) mEq/L Potassium 3.7 (3.5-5.1) mEq/L Chloride 100 (98-107) mEq/L Carbon Dioxide 24 (21-32) mEq/L Anion Gap 17.7 H (5-15) BUN 9 (7-18) mg/dL Creatinine 1.3 (0.7-1.3) mg/dL Est Cr Clr Drug Dosing 86.23 mL/min Estimated GFR (MDRD) > 60 (>60) mL/min BUN/Creatinine Ratio 6.9 L (14-18) Glucose 196 H (74-106) mg/dL Lactic Acid 4.8 H (0.4-2.0) mmol/L Calcium 8.6 (8.5-10.1) mg/dL Magnesium 1.8 (1.8-2.4) mg/dl Total Bilirubin 0.3 (0.2-1.0) mg/dL AST 27 (15-37) U/L ALT 48 (16-63) U/L Alkaline Phosphatase 84 (46-116) U/L Creatine Kinase 551 H (39-308) U/L Total Protein 7.2 (6.4-8.2) g/dl Albumin 4.0 (3.4-5.0) g/dl Globulin 3.2 gm/dL Albumin/Globulin Ratio 1.3 (1-2) Ketones (0.0-0.3) mM // Range/Units 20:40 WBC (4.23-9.07) K/mm3 RBC (4.63-6.08) M/mm3 Hgb (13.7-17.5) gm/L Hct (40.1-51.0) % MCV (79.0-92.2) fl MCH (25.7-32.2) pg MCHC (32.2-35.5) g/dl RDW Std Deviation (35.1-43.9) fL Plt Count (163-337) K/mm3 MPV (9.4-12.3) fl Neutrophils % (Manual) (40-60) % Band Neutrophils % (0-10) % Lymphocytes % (Manual) (20-40) % Atypical Lymphs % % Monocytes % (Manual) (2-10) % Eosinophils % (Manual) (0.8-7.0) % Basophils % (Manual) (0.2-1.2) Platelet Estimate Plt Morphology Comment RBC Morph Comment Sodium (136-145) mEq/L Potassium (3.5-5.1) mEq/L Chloride (98-107) mEq/L Carbon Dioxide (21-32) mEq/L Anion Gap (5-15) BUN (7-18) mg/dL Creatinine (0.7-1.3) mg/dL Est Cr Clr Drug Dosing mL/min Estimated GFR (MDRD) (>60) mL/min BUN/Creatinine Ratio (14-18) Glucose (74-106) mg/dL Lactic Acid (0.4-2.0) mmol/L Calcium (8.5-10.1) mg/dL Magnesium (1.8-2.4) mg/dl Total Bilirubin (0.2-1.0) mg/dL AST (15-37) U/L ALT (16-63) U/L Alkaline Phosphatase (46-116) U/L Creatine Kinase (39-308) U/L Total Protein (6.4-8.2) g/dl Albumin (3.4-5.0) g/dl Globulin gm/dL Albumin/Globulin Ratio (1-2) Ketones 0.17 (0.0-0.3) mM Meds: Medications Discontinued Medications Generic Name Dose Route Start Last Admin Trade Name Freq PRN Reason Stop Dose Admin Hydromorphone HCl 0.5 mg 10/03/18 20:12 10/03/18 20:21 Dilaudid IVPUSH 10/03/18 20:13 0.5 mg ONETIME ONE Administration Hydromorphone HCl 1 mg 10/03/18 21:14 10/03/18 21:23 Dilaudid IVPUSH 10/03/18 21:15 1 mg ONETIME ONE Administration Dextrose/Lactated Ringer's 1,000 mls @ 999 mls/hr 10/03/18 20:15 10/03/18 20: 20 Dextrose 5%-Lactated Ringers IV 999 mls/hr ASDIRECTED ALMITA Administration Ketorolac Tromethamine 30 mg 10/03/18 21:15 10/03/18 21:32 Toradol IVPUSH 30 mg ONETIME ALMITA Administration Ondansetron HCl 4 mg 10/03/18 20:12 10/03/18 20:21 Zofran IVPUSH 10/03/18 20:13 4 mg ONETIME ONE Administration - Radiology Interpretation Free Text/Narrative:: 23-year-old male presents to the ED per local [facility] [facility]. Apparently collapsed outside in the yard right behind the house. He was currently working in the home pulling up a carpet and was carrying up a rolled up carpet outside when apparently he collapsed. The neighbor called out to the family and called 911 when he seen him go down. It suggested that he was exhibiting seizure-like activity by the neighbor. By the time and family members attended him he was no longer showing any signs of tonic-clonic activity. He was lying on his back with one of his arms up above his head and moaning and groaning. They put a cool towel on his forehead and Route over the next 5-10 minutes he began to able to verbalize. His speech initially was quite is arthritic and mumbling. At present he is alert oriented and answers all questions appropriately. Sounds like he is a normal healthy fellow takes no medications. Working long hours in the hot sun today. States he did drink Gatorade a good portion of the day did not feel that he had become dehydrated. He has not eaten supper yet tonight. Past history of seizures. Denies any recent alcohol or street drug use. Neuro exam is grossly normal. Reflexes are 3+ in his biceps and knees and 2+ at the ankles and symmetrical. Showing generalized muscular weakness no bite hooper to his tongue. He did not lose control of his bowel or bladder. Therefore difficult to ascertain syncopal event versus possible seizure. Suspect the latter as he seemed to take 5-10 minutes to be able to verbalize normally. He has not walked yet as the paramedics came and picked him up from the ground. Complaining of a diffuse headache and pain at the base of his neck. Plan IV D5 Ringer's lactate at open. Given Dilaudid 0.5 g IV with Zofran 4 mg IV for nausea and pain relief. He will have CT of the head and cervical spine carried out. Routine labs and ECG to be done. Of note he was quite tachycardic at the time was initially seen at 137/min. - Re-Assessments/Exams Free Text/Narrative Re-Assessment/Exam: 10/03/18 21:15 CT head is within normal limits showing no intracranial bleeding or mass effect. No skull fractures appreciated. CT cervical spine reveals loss of normal lordotic curvature. Evidence of previous trauma to the cervical spine at the C6-C7 level with mild posterior osteophyte formation and some calcification in the anterior annulus of the disc bilaterally. This is felt to be degenerative in etiology no fracture or subluxation is identified. Patient is complaining of significant headache and cervical neck pain. States the initial dose of Dilaudid did nothing. His tachycardia is improving as his heart rates down to 104. I will repeat Dilaudid 1 mg IV and Toradol 30 mg IV for pain relief. 10/03/18 21:41 Labs reveal an elevated white count at 13.28 with 70% neutrophils and no bands reported. Hemoglobin is 14.7 with hematocrit of 41.9. MCV is 87.8. Platelet count is normal 246,000. Sodium 138 with a potassium of 3.7. Chloride is 100 with a darker about 24. Anion gap is elevated at 17.7. BUNs 19 with a creatinine of 1.3. EGFR is greater than 60. Glucose is elevated at 196. Calcium is 8.6. Lactic acid is elevated at 4.8. Magnesium is normal at 1.8. Liver function is normal. Creatine kinase is elevated at 551. Serum ketones 0.17. Lab strongly suggest that he did in fact suffering a seizure. I.e. no onset of unclear etiology. He will therefore have to have an MRI as an outpatient and an EEG. 10/03/18 22:01 I discussed the findings with the patient that there is no doubt that he suffered a new onset seizure tonight. He does not have a primary care physician I will therefore have him follow-up with Dr. Gutierrez in the family medicine unit. I will try and book him for an MRI as an outpatient and in outpatient EEG and then he's to follow-up with Dr. Gutierrez after this. I find nothing in his history that would cause a seizure. The only thing is perhaps lack of sleep as she's been working long hours with very little sleep. Currently not drinking any alcohol. Does not use any stimulant drinks. Denies use of any street drugs. Patient will limit his driving to only when necessary. Advise no baths and no swimming without someone else spinning around. Note given to excuse him from the work place for the next 2 days so that he can catch up on some sleep. Patient is likely going to have increased pain in his cervical spine and low back from seizure activity. He still has a very sore neck. Will discharge him with Percocet tabs 5/3/25 milligram 12 tablets one or 2 every 4-6 hours for the next day or 2 and then Motrin 600 mg every 6 hours as needed. Departure - Departure Time of Disposition: 22:02 Disposition: Home, Self-Care 01 Condition: Fair Clinical Impression: New onset seizure - Discharge Information *PRESCRIPTION DRUG MONITORING PROGRAM REVIEWED*: No *COPY OF PRESCRIPTION DRUG MONITORING REPORT IN PATIENT ALICIA: No Prescriptions: oxyCODONE HCl/Acetaminophen [Percocet 5-325 mg Tablet] 1 - 2 each PO Q4H PRN # 15 tablet PRN Reason: pain relief. Instructions: Epilepsy, Seizure, Adult Referrals: PCP,None [Primary Care Provider] - Forms: ED Department Discharge, ED Return to Work/School Form Additional Instructions: Evaluation the emergency room tonight in regards to having had a seizure outside of her home tonight in the backyard. TE of the brain does not reveal any brain abnormalities or intracranial bleeding. Also CT of her neck was carried out due to significant pain throughout her neck likely from it being hyperextended during a seizure. Again no fractures were identified. Lab work definitely confirms a seizure has occurred. Therefore you require further investigations by way of the MRI of your brain as an outpatient as well as an outpatient the ECG which is brainwave monitoring for any abnormal activity. No acute these 2 tests were abnormal that it would mean that you are likely to have a recurrent seizure and benefit from being on antiseizure medication. At this time antiseizure medication is not indicated since his seizure for seizure without any obvious reason for this to have occurred other than perhaps lack of sleep the last several days. Off work for the next 2 days to rest up. He will find that she will be very stiff and sore in her muscles tomorrow and he will need Motrin 600 mg every 6 hours and perhaps a Percocet tablet or 2 for pain relief for the next couple of days. Your lab tests did not show that he wears suffering any significant dehydration. Suggest follow-up with Dr. Gutierrez internal medicine physician on the third floor of the east side of the hospital. Please phone and make an appointment morning. The phone number is [phone] The plan will be to have your MRI and EEG results sent to him. Suggest planning a appointment in about 10 days time for the results of these tests. Radiology department will call you tomorrow morning with an MRI appointment and similarly respiratory therapy will call you tomorrow to try and arrange a suitable time for an outpatient EEG.(brainwave test). - My Orders Last 24 Hours: My Active Orders 10/03/18 20:15 EKG Documentation Completion [RC] STAT - Assessment/Plan Last 24 Hours: My Active Orders 10/03/18 20:15 EKG Documentation Completion [RC] STAT
--- NOTE | 2018-10-03 20:56 | CT ---
CT cervical spine Technique: Multiple axial sections through the cervical spine were obtained. Reconstructed sagittal and coronal images were reviewed. Comparison: No previous study. Findings: Mild anterior osteophytes are noted at C5-6 and C6-7. Slight calcification is also seen within the anterior annulus at both these levels which is felt to be degenerative in etiology. Vertebral body heights and disc spaces are maintained. No fracture or subluxation is seen. No bony central or bony neural foraminal stenosis is noted. Impression: 1. Minimal degenerative change. 2. Nothing acute is appreciated on CT study of the cervical spine. Diagnostic code #2
--- NOTE | 2018-10-03 20:56 | CT ---
Head CT Technique: Multiple axial sections through the brain were obtained. Intravenous contrast was not utilized. Comparison: No prior intracranial imaging. Findings: Ventricles along with basal cisterns and sulci over the convexities appear within normal limits for the patient's age. No abnormal parenchymal densities are seen. No evidence of intracranial hemorrhage. No midline shift or mass effect is seen. Bone window settings were reviewed which show no discrete calvarial abnormality. Visualized paranasal sinuses show nothing acute. Mastoid sinuses are clear. Impression: 1. Nothing acute is identified on noncontrast head CT exam. Diagnostic code #1
[2018-10-03] MEDS ORDERED: HYDROmorphone 1 MG/ML Syringe IVPUSH ONE (21:14)
[2018-10-03] MEDS ORDERED: Ketorolac 30 MG/ML SDV IVPUSH SCH (21:15)
== END 2018-10-03 22:20 | disposition home or self-care (01) ==
LOC: JD.ED 19:58
DX: R56.9 Unspecified convulsions (principal)
CPT/HCPCS: 36415; 70450; 72125; 80053; 82009; 82550; 83605; 83735; 85007; 85027; 93005; 96361; 96374; 96375; 96376; 99284; J1170; J1885; J2405; J7042; 93010; 99285

== ENCOUNTER 2019-01-02 17:19 | Emergency (ER) | payer SELFPAY ==
[2019-01-02 17:29] VITALS: BP 139/95; PULSE 70
--- NOTE | 2019-01-02 19:56 | EDM.PDOC ---
ED HPI GENERAL MEDICAL PROBLEM - General Chief Complaint: Upper Extremity Injury/Pain Stated Complaint: RT WRIST INJURY Time Seen by Provider: 01/02/19 19:03 Source of Information: Reports: Patient History Limitations: Reports: No Limitations - History of Present Illness INITIAL COMMENTS - FREE TEXT/NARRATIVE: Mr. Stover is a pleasant 23-year-old man with no significant past medical history , who states that he fell off a ladder while trying to change a light bulb yesterday, 01/01/2019. He states that he fell onto his right fist. He has developed pain to his distal right forearm, which radiates up towards his elbow. No prior right upper extremity injury. The patient states that he is otherwise uninjured. The patient does not have a PCP. Wrist Pain Score (Numeric/FACES): 7 - Related Data Allergies Allergy/AdvReac Type Severity Reaction Status Date / Time No Known Allergies Allergy Verified 01/02/19 17:29 Home Meds: Home Meds . [No Known Home Meds] 01/02/19 [History] Past Medical History HEENT History: Reports: Impaired Vision Other HEENT History: wears glasses Musculoskeletal History: Reports: Fracture (left tib/fib, left ankle, left foot) Psychiatric History: Reports: Addiction (alcohol, alprazolam), Depression ( untreated) - Infectious Disease History Infectious Disease History: Reports: C-Difficile Social & Family History - Family History Family Medical History: Noncontributory - Tobacco Use Smoking Status *Q: Current Every Day Smoker Years of Tobacco use: 5 Packs/Tins Daily: 0.5 Packs/Tins Daily Comment: Down from 1 ppd - Caffeine Use Caffeine Use: Reports: Soda - Alcohol Use Alcohol Use History: Yes Alcohol Use Frequency: Socially (occasionally to excess) - Recreational Drug Use Recreational Drug Use: Yes Drug Use in Last 12 Months: Yes Recreational Drug Type: Reports: Marijuana/Hashish (last smoked 2016), Methamphetamine (last smoked 2017), Xanax (last took 09/21/2018) - Living Situation & Occupation Living situation: Reports: Single, with Significant Other (Girlfriend) Occupation: Employed ([employer]) Review of Systems - Review of Systems Review Of Systems: ROS reveals no pertinent complaints other than HPI. ED EXAM, GENERAL - Physical Exam Exam: See Below Exam Limited By: No Limitations General Appearance: Alert, WD/WN, No Apparent Distress Extremities: Other (There is a moderate amount of swelling to the distal right forearm, wrist, and hand. No tenderness to palpation of the head, but there is tenderness to palpation of the wrist, particularly on the radial side. Pain is not induced by compressing the mid ulna and radius. Neurovascular status of the right upper extremity is intact.) ED TRAUMA EXTREMITY PROCEDURES - Splinting Right Upper Extremity Splint Site: Distal forearm Pre-Procedure NV Status: Normal Post-Procedure NV Status: Normal Splint Material: Fiberglass Splint Design: Gutter (ulnar) Applied & Form Fitted By: Provider Provider Post-Splint Application NV Check: NV Status Normal, Good Position Complications: No Course - Vital Signs Last Recorded V/S: Last Vital Signs Temp 37.3 C 01/02/19 17:28 Pulse 70 01/02/19 17:28 Resp 15 01/02/19 17:28 BP 139/95 H 01/02/19 17:28 Pulse Ox 97 01/02/19 17:28 - Orders/Labs/Meds Orders: Active Orders 24 hr Category Date Time Status Wrist Comp Min 3V Rt [CR] Stat Exams 01/02/19 17:36 Taken - Re-Assessments/Exams Free Text/Narrative Re-Assessment/Exam: 01/02/19 19:50 4-view radiographs of the right wrist appear to be unremarkable. No fracture or dislocation identified. Formal read per the Radiologist pending. Despite the negative radiographs, the patient has enough swelling and tenderness to his distal forearm and wrist area that I think splinting is appropriate. The patient was therefore placed into an ulnar gutter splint, extending from the MCPs to above the elbow, with the elbow at 90 and the hand in a thumbs up position. The patient tolerated the procedure well. I will discharge the patient home with the recommendation that he ice and elevate his right wrist is much as possible over the next couple of days. He can take [id number] ibuprofen as needed for discomfort. I would like him to follow-up with Dr. Vanegas this coming week. Departure - Departure Time of Disposition: 19:52 Disposition: Home, Self-Care 01 Condition: Good Clinical Impression: Right wrist sprain - Discharge Information *PRESCRIPTION DRUG MONITORING PROGRAM REVIEWED*: Not Applicable *COPY OF PRESCRIPTION DRUG MONITORING REPORT IN PATIENT ALICIA: Not Applicable Referrals: Benjamin Vanegas MD [Physician] - Forms: ED Department Discharge Additional Instructions: You were seen in the emergency room after falling off a ladder and injuring your right wrist. Workup in the ER included x-rays of your right wrist, which returned unremarkable. No fractures or dislocations were seen, however, due to the amount of pain and swelling that you have to the area, your right arm was placed into a splint to protect it in case there are fractures that we can't see on the x-rays. We recommend that you ice and elevate your right wrist as much as possible over the next couple of days, to help minimize swelling. Take [id number] ibuprofen, 3 tablets (600 mg) every 8 hours, with food, as needed for discomfort. Contact the office of the Orthopedic Surgeon Dr. Benjamin Vanegas tomorrow morning, to make an appointment to be seen by Dr. Vanegas next week. If any other problems, please do not hesitate to return to the ER.
--- NOTE | 2019-01-03 07:03 | CR ---
Right wrist: Four views of the right wrist were obtained. Comparison: No prior right wrist study. Joint spaces are preserved. No fracture, dislocation or other bony abnormality is seen. Impression: 1. No abnormality is identified on right wrist exam. Diagnostic code #1
== END 2019-01-02 20:00 | disposition home or self-care (01) ==
LOC: JD.ED 17:19
DX: S63.501A Unspecified sprain of right wrist, initial encounter (principal); F17.210 Nicotine dependence, cigarettes, uncomplicated; W11.XXXA Fall on and from ladder, initial encounter
CPT/HCPCS: 29105; 73110-26-RT; 73110-RT; 99283-25

== ENCOUNTER 2019-03-28 22:13 | Emergency (ER) | payer SELFPAY ==
[2019-03-28 22:19] VITALS: BP 144/84; PULSE 107
--- NOTE | 2019-03-28 22:59 | EDM.PDOCBH ---
ED HPI GENERAL MEDICAL PROBLEM - General Chief Complaint: Neurological Problem Stated Complaint: [facility] Time Seen by Provider: 03/28/19 22:47 - History of Present Illness INITIAL COMMENTS - FREE TEXT/NARRATIVE: When I went in to see the patient, he told me that he did not want to see me, that he has a malpractice lawsuit against me (I am unaware of any lawsuit lodged against me). He appears to be intoxicated. I explained to the patient that I'm the only ER physician on duty (indeed, the only physician in the hospital), and that if he does not agree to see me, then we cannot help him. He said he would leave. Head Pain Score (Numeric/FACES): 8 - Related Data Allergies Allergy/AdvReac Type Severity Reaction Status Date / Time No Known Allergies Allergy Verified 01/02/19 17:29 Home Meds: Home Meds . [No Known Home Meds] 01/02/19 [History] Past Medical History - Past Health History Medical/Surgical History: Denies Medical/Surgical History HEENT History: Reports: Impaired Vision Other HEENT History: wears glasses Cardiovascular History: Reports: Other (See Below) Other Cardiovascular History: Patient states "5 years ago I had a minor heart attack. I was supposed to follow up with a pickle processor but I didnt. I have an irregular heart rhythm." Gastrointestinal History: Reports: Other (See Below) Other Gastrointestinal History: ulcers Musculoskeletal History: Reports: Fracture Other Musculoskeletal History: "Broken foot, ankle, tib/fib" Psychiatric History: Reports: Addiction, Depression - Infectious Disease History Infectious Disease History: Reports: C-Difficile - Past Surgical History GI Surgical History: Reports: None Social & Family History - Family History Family Medical History: Noncontributory - Tobacco Use Smoking Status *Q: Unknown Ever Smoked - Caffeine Use Caffeine Use: Reports: Soda - Alcohol Use Days Per Week of Alcohol Use: 7 Number of Drinks Per Day: 5 Total Drinks Per Week: 35 - Recreational Drug Use Recreational Drug Use: No - Living Situation & Occupation Living situation: Reports: Single, with Significant Other (Girlfriend) Occupation: Employed ([employer]) ED ROS GENERAL - Review of Systems Review Of Systems: Unable To Obtain Reason Not Obtained: Pt refused evaluation ED EXAM, BEHAVIORAL HEALTH - Physical Exam Exam: Not Obtained Reason Not Obtained: Pt refused evaluation COURSE, BEHAVIORAL HEALTH COMP - Course Vital Signs: Last Vital Signs Temp 36.4 C 03/28/19 22:14 Pulse 107 H 03/28/19 22:14 Resp 16 03/28/19 22:14 BP 144/84 H 03/28/19 22:14 Pulse Ox 97 03/28/19 22:14 Departure - Departure Time of Disposition: 22:57 Disposition: Against Medical Advice 07 Condition: Good Clinical Impression: Intoxication - Discharge Information *PRESCRIPTION DRUG MONITORING PROGRAM REVIEWED*: Not Applicable *COPY OF PRESCRIPTION DRUG MONITORING REPORT IN PATIENT ALICIA: Not Applicable Referrals: PCP,None [Primary Care Provider] - Forms: ED Department Discharge Additional Instructions: You were brought to the emergency for possibly having a seizure and hitting your head. You have refused to see the emergency physician and prefer to leave AGAINST MEDICAL ADVICE. We recommend that you go to one of the ERs in [place] for evaluation, however, if you change your mind, we would be happy to evaluate you here. Sepsis Event Note - Evaluation Sepsis Screening Result: No Definite Risk - Focused Exam Vital Signs: Vital Signs Temp Pulse Resp BP Pulse Ox 03/28/19 22:14 36.4 C 107 H 16 144/84 H 97 Date Exam was Performed: 03/28/19 Time Exam was Performed: 23:23
== END 2019-03-28 23:24 | disposition left against medical advice (07) ==
LOC: JD.ED 22:13
DX: F10.129 Alcohol abuse with intoxication, unspecified (principal)
CPT/HCPCS: 99283

== ENCOUNTER 2020-03-02 23:43 | Emergency (ER) | payer SELFPAY ==
--- NOTE | 2020-03-03 00:11 | EDM.PDOCBH ---
ED HPI GENERAL MEDICAL PROBLEM - General Chief Complaint: Drug or Alcohol Abuse Stated Complaint: [facility] Time Seen by Provider: 03/02/20 23:54 Source of Information: Reports: Patient, RN Notes Reviewed History Limitations: Reports: Uncooperative (Patient unable/unwilling to provide much history, stating,"I don't know what the f happened.) - History of Present Illness INITIAL COMMENTS - FREE TEXT/NARRATIVE: Mr. Stover is a pleasant 24-year-old man with a past medical history significant for alcoholism and drug abuse, who is now brought to the ED by EMS after his girlfriend called, having found him unresponsive at home. She apparently performed bystander CPR. When EMS arrived, they gave the patient 8 mg of intranasal Narcan, after which he woke up and was alert. He told the paramedics that he had taken 30 mg of oxycodone, but that he had also drank a sixpack of beer and drank a few shots of hard alcohol. The patient acknowledges that the oxycodone has not prescribed either he or his girlfriend. He stated that he is aware that there are fake pills out there, wayneit Branden admitting that he purchased the pill on the street. He did not answer me when I asked if he has taken any of those pills previously, although he denies ever having overdosed previously. At this time, he states that he has some chest discomfort from the CPR, otherwise, he has no complaints. Here in the ED, the patient is found to be tachycardic at 118 bpm, otherwise, he is hemodynamically stable, afebrile, saturating 90% on room air. Other than tonight's overdose, the patient denies having a recent fever, chills, sore throat, ear pain, nasal or sinus congestion, cough, dyspnea, chest pain, palpitations, nausea, vomiting, constipation, diarrhea, abdominal pain, urinary symptoms, recent weight gain or weight loss, recent bloody bowel movements or black bowel movements, recent joint aches, headaches, or rashes. The patient states that he has never been tested for the SARS-CoV-2 virus. Chest Pain Score (Numeric/FACES): 5 - Related Data Allergies Allergy/AdvReac Type Severity Reaction Status Date / Time No Known Allergies Allergy Verified 03/02/20 23:51 Home Meds: Home Meds . [No Known Home Meds] 01/02/19 [History] Past Medical History HEENT History: Reports: Impaired Vision Other HEENT History: wears glasses Musculoskeletal History: Reports: Fracture Other Musculoskeletal History: "Broken foot, ankle, tib/fib" Psychiatric History: Reports: Addiction (alcohol), Depression - Infectious Disease History Infectious Disease History: Reports: C-Difficile - Past Surgical History HEENT Surgical History: Reports: None GI Surgical History: Reports: None Musculoskeletal Surgical History: Reports: Other (See Below) Social & Family History - Family History Family Medical History: No Pertinent Family History - Tobacco Use Tobacco Use Status *Q: Current Every Day Tobacco User Years of Tobacco use: 5 Packs/Tins Daily: 0.5 - Caffeine Use Caffeine Use: Reports: None - Recreational Drug Use Recreational Drug Use: Yes Drug Use in Last 12 Months: Yes Recreational Drug Type: Reports: Heroin, Other (see below) Other Recreational Drug Type: Perc30 - Living Situation & Occupation Living situation: Reports: Single, with Significant Other (Girlfriend) Occupation: Employed ([employer]) ED ROS GENERAL - Review of Systems Review Of Systems: Comprehensive ROS is negative, except as noted in HPI. ED EXAM, BEHAVIORAL HEALTH - Physical Exam Exam: See Below Exam Limited By: No Limitations General Appearance: Alert, WD/WN, No Apparent Distress Eye Exam: Bilateral Eye: EOMI, Normal Inspection Ears: Normal External Exam, Hearing Grossly Normal Nose: Normal Inspection Throat/Mouth: Normal Inspection, Normal Lips, Normal Voice, No Airway Compromise Head: Atraumatic, Normocephalic Neck: Normal Inspection, Full Range of Motion Respiratory/Chest: No Respiratory Distress, Lungs Clear, Normal Breath Sounds, No Accessory Muscle Use Cardiovascular: Normal Peripheral Pulses, No Edema, No Gallop, No JVD, No Murmur, No Rub, Tachycardia (regulaar) GI/Abdominal: Normal Bowel Sounds, Soft, Non-Tender, No Organomegaly, No Distention, No Abnormal Bruit, No Mass Back Exam: Normal Inspection, Full Range of Motion, NT Extremities: Normal Inspection, Normal Range of Motion, No Pedal Edema, Normal Capillary Refill Neurological: Alert, Normal Cognition, No Motor/Sensory Deficits, Oriented x 3 Psychiatric: Flat Affect Skin Exam: Warm, Dry, Intact, Normal color, No rash COURSE, BEHAVIORAL HEALTH COMP - Course Vital Signs: Last Vital Signs Temp 36.3 C 11/23/20 23:45 Pulse 118 H 03/02/20 23:45 Resp 16 03/02/20 23:45 BP 137/78 03/02/20 23:45 Pulse Ox 90 L 03/02/20 23:45 Orders, Labs, Meds: Active Orders 24 hr Category Date Time Status Chest 2V [CR] Stat Exams 03/03/20 00:05 Taken CORONAVIRUS COVID-19 PCR [facility] Stat Lab 03/03/20 00:26 Received Medical Clearance: 03/03/20 00:07 As per the HPI, the patient overdosed on an opioid earlier tonight. There is a reasonable chance that there was fentanyl in the pill that he took. The patient's oxygen saturation is remaining about 90%, although did go up to 94% briefly when I had him take a couple of deep breaths. He is anxious to go home, but permitted me to order a chest x-ray and a send-out swab for the SARS-CoV-2 virus. 03/03/20 00:48 2-view chest radiograph is read by Wilma as "No acute findings." 03/03/20 01:21 Chest x-ray results discussed with the patient. He is still awake and lucid. I explained to him that it is likely that he unknowingly took some fentanyl tonight, and that the problem is that the half-life of fentanyl is longer than the half-life of the Narcan that he was given. I therefore recommended that we keep him here in the ED for a couple of hours, to monitor his oxygen saturation, but the patient insists on going home. I will discharge him. Departure - Departure Time of Disposition: 01:22 Disposition: Home, Self-Care 01 Condition: Good Clinical Impression: Opioid overdose - Discharge Information *PRESCRIPTION DRUG MONITORING PROGRAM REVIEWED*: Not Applicable *COPY OF PRESCRIPTION DRUG MONITORING REPORT IN PATIENT ALICIA: Not Applicable Referrals: PCP,None [Primary Care Provider] - Forms: ED Department Discharge Additional Instructions: You were seen in the emergency room after being brought by paramedics, after your girlfriend found you unresponsive. You woke up after the paramedics gave you the opioid-reversing medicine Narcan. This indicates that you are suffering from an opioid overdose. There is a good chance that you inadvertently overdosed on fentanyl tonight. Work-up in the ER included a chest x-ray and a send-out swab for the SARS-CoV-2 virus. Your chest x-ray was unremarkable. We strongly recommend that you seek help with respect to your excessive drinking and drug use by going to [facility]: [address] [place] [phone] If any other problems, please do not hesitate to return to the ER. Sepsis Event Note (ED) - Evaluation Sepsis Screening Result: No Definite Risk - Focused Exam Vital Signs: Vital Signs Temp Pulse Resp BP Pulse Ox 03/02/20 23:45 36.3 C 118 H 16 137/78 90 L - My Orders Last 24 Hours: My Active Orders 03/03/20 00:05 Chest 2V [CR] Stat 03/03/20 00:26 [facility] COVID-19 PCR [facility] Stat - Assessment/Plan Last 24 Hours: My Active Orders 03/03/20 00:05 Chest 2V [CR] Stat 03/03/20 00:26 CORONAVIRUS COVID-19 PCR [facility] Stat
[2020-03-03 00:27] VITALS: BP 137/78; PULSE 118
--- NOTE | 2020-03-03 09:17 | CR ---
PROCEDURE INFORMATION: Exam: XR Chest, 2 Views Exam date and time: 03/03/2020 12:32 AM Age: 24 years old Clinical indication: Other: Low 02 sats TECHNIQUE: Imaging protocol: XR of the chest Views: 2 views. COMPARISON: DX Chest 2V 07/08/2019 1:56 PM FINDINGS: Lungs: Unremarkable. No consolidation. Pleural space: Unremarkable. No pleural effusion. No pneumothorax. Heart/Mediastinum: Unremarkable. No cardiomegaly. Bones/joints: Unremarkable. IMPRESSION: No acute findings. Thank you for allowing us to participate in the care of your patient. Dictated and Authenticated by: Ankush Moody MD 03/03/2020 1:44 AM Central Time ([place] & [place]) [place]
== END 2020-03-03 01:34 | disposition home or self-care (01) ==
LOC: JD.ED 23:43
DX: T40.2X1A Poisoning by other opioids, accidental (unintentional), initial encounter (principal); F17.210 Nicotine dependence, cigarettes, uncomplicated; Z20.828 Contact with and (suspected) exposure to other viral communicable diseases
CPT/HCPCS: 71046; 71046-26; 99284-25; U0002

== ENCOUNTER 2020-04-21 03:32 | Emergency (ER) | payer SELFPAY ==
[2020-04-21 03:41] VITALS: BP 145/79; PULSE 106
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
--- NOTE | 2020-04-21 07:33 | CT ---
CT cervical spine Technique: Multiple axial sections were obtained from above C1 inferiorly to the bottom of T2. Reconstructed coronal and sagittal images were obtained. Comparison: Prior cervical spine CT study of 10/03/18. Findings: Minimal disc bulging is noted anteriorly at C3-4 through C6-7. Anterior osteophytes are noted most prominent at C5-6. No bony central canal stenosis or neural foraminal stenosis is seen. No acute fracture is appreciated. Impression: 1. Minimal degenerative change as noted above. 2. Nothing acute is seen. Diagnostic code #2 I agree with preliminary report from [facility], finalized on 04/21/20, 6:14 AM [employer]
== END 2020-04-21 05:29 ==
LOC: JD.ED 03:32
DX: T71.162A Asphyxiation due to hanging, intentional self-harm, initial encounter (principal); F10.229 Alcohol dependence with intoxication, unspecified; S01.81XA Laceration without foreign body of other part of head, initial encounter; Z72.0 Tobacco use; X78.9XXA Intentional self-harm by unspecified sharp object, initial encounter
CPT/HCPCS: 12001; 12011; 72125; 72125-26; 93005; 93010; 99284; 99285-25

== ENCOUNTER 2020-05-16 16:14 | Emergency (ER) | payer SELFPAY ==
[2020-05-16] MEDS ORDERED: Sodium Chloride 0.9% 1,000 ML IV ONE (16:30)
--- NOTE | 2020-05-16 16:31 | EDM.PDOC ---
ED HPI GENERAL MEDICAL PROBLEM - General Chief Complaint: Drug or Alcohol Abuse Stated Complaint: [facility] Time Seen by Provider: 05/16/20 16:18 Source of Information: Reports: Patient, Old Records, RN Notes Reviewed History Limitations: Reports: No Limitations - History of Present Illness INITIAL COMMENTS - FREE TEXT/NARRATIVE: Patient is a 25-year-old male who is brought in via [facility] ambulance service, for the evaluation of an overdose. The ambulance service was called for an unresponsive individual at around 3:40 PM. He was given a total of 10 mg Narcan, and then woke up. The patient states that he took what he believed to be half a tablet of Percocet that he acquired from a friend, and then he ended up here. He denies any fevers or chills, cough or shortness of breath, nausea/vomiting/diarrhea. He notes that he took the Percocet because his legs hurt all the time. Patient does have a history of opioid abuse, alcohol abuse, ETC. He was last seen in this ER at the end of April for an attempted suicide by hanging. Patient is not complaining of any other symptoms at this time. - Related Data Allergies Allergy/AdvReac Type Severity Reaction Status Date / Time No Known Allergies Allergy Verified 05/16/20 16:19 Home Meds: Home Meds . [No Known Home Meds] 01/02/19 [History] Past Medical History - Past Health History Medical/Surgical History: Denies Medical/Surgical History HEENT History: Reports: Impaired Vision Other HEENT History: wears glasses Gastrointestinal History: Reports: Other (See Below) Other Gastrointestinal History: ulcers Musculoskeletal History: Reports: Fracture Other Musculoskeletal History: "Broken foot, ankle, tib/fib" Psychiatric History: Reports: Addiction, Depression Endocrine/Metabolic History: Reports: Obesity/BMI 30+ - Infectious Disease History Infectious Disease History: Reports: C-Difficile - Past Surgical History HEENT Surgical History: Reports: None GI Surgical History: Reports: None Musculoskeletal Surgical History: Reports: Other (See Below) Social & Family History - Family History Family Medical History: No Pertinent Family History - Tobacco Use Tobacco Use Status *Q: Current Every Day Tobacco User Years of Tobacco use: 5 Packs/Tins Daily: 0.5 - Caffeine Use Caffeine Use: Reports: None - Recreational Drug Use Recreational Drug Use: Yes Drug Use in Last 12 Months: Yes Recreational Drug Type: Reports: Other (see below) Other Recreational Drug Type: percocet - Living Situation & Occupation Living situation: Reports: Single, Other (At a friend's place) 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 ED EXAM, GENERAL - Physical Exam Exam: See Below Exam Limited By: No Limitations General Appearance: Alert, WD/WN, No Apparent Distress (pt is a little lethargic looking, but answers questions appropriately.) Respiratory/Chest: No Respiratory Distress, Lungs Clear, Normal Breath Sounds, No Accessory Muscle Use, Chest Non-Tender Cardiovascular: Normal Peripheral Pulses, Regular Rate, Rhythm (sinus tach) Peripheral Pulses: 2+: Radial (L), Radial (R) Extremities: Normal Inspection, Normal Capillary Refill Neurological: Alert, Oriented, Normal Cognition, No Motor/Sensory Deficits Psychiatric: Normal Affect, Normal Mood Skin Exam: Warm, Dry, Intact, Normal Color, No Rash #1 Interpretation EKG Date: 05/16/20 Time: 16:19 Rhythm: NSR Rate (Beats/Min): 101 [place]: Normal P-Wave: Present QRS: Normal ST-T: Normal QT: Normal EKG Interpretation Comments: No obvious ischemia or acute ST changes noted, reviewed by myself and Dr. Clarke. Course - Vital Signs Last Recorded V/S: Last Vital Signs Temp 96.3 F L 05/16/20 16:17 Pulse 100 05/16/20 17:00 Resp 18 05/16/20 17:00 BP 119/55 L 05/16/20 17:00 Pulse Ox 99 05/16/20 17:00 - Orders/Labs/Meds Orders: Active Orders 24 hr Category Date Time Status EKG 12 Lead [EKG Documentation Completion] [RC] STAT Care 05/16/20 16:30 Ordered Sodium Chloride 0.9% [Normal Saline] 1,000 ml Med 05/16/20 16:30 Ordered IV ONETIME Medication Orders Sodium Chloride (Normal Saline) 1,000 mls @ 500 mls/hr IV ONETIME ONE Stop: 05/16/20 18:29 Last Admin: 05/16/20 16:42 Dose: 500 mls/hr Documented by: Meds: Medications Generic Name Dose Route Start Last Admin Trade Name Freq PRN Reason Stop Dose Admin Sodium Chloride 1,000 mls @ 500 mls/hr 05/16/20 16:30 05/16/20 16:42 Normal Saline IV 05/16/20 18:29 500 mls/hr ONETIME ONE Administration - Re-Assessments/Exams Free Text/Narrative Re-Assessment/Exam: 05/16/20 16:29 Patient presents to the ED for evaluation of his overdose. EKG was obtained at time of triage. He already had IV established by ambulance service. We will go ahead and give him some IV fluids, observe him for a few hours and discharge him home hopefully with conservative recommendations. 05/16/20 17:26 Was made aware by nursing staff, that the patient would like to leave, as I would like him to have the bag of fluids and observe him for little bit, he will be doing so AMA. Departure - Departure Time of Disposition: 17:26 Disposition: Against Medical Advice 07 Condition: Good Clinical Impression: Accidental overdose Qualifiers: Encounter type: initial encounter Qualified Code(s): T50.901A - Poisoning by unspecified drugs, medicaments and biological substances, accidental (unintentional), initial encounter - Discharge Information *PRESCRIPTION DRUG MONITORING PROGRAM REVIEWED*: No *COPY OF PRESCRIPTION DRUG MONITORING REPORT IN PATIENT ALICIA: No Forms: ED Department Discharge Sepsis Event Note (ED) - Evaluation Sepsis Screening Result: No Definite Risk - Focused Exam Vital Signs: Vital Signs Temp Pulse Resp BP Pulse Ox 05/16/20 17:00 100 18 119/55 L 99 05/16/20 16:17 96.3 F L 114 H 16 115/97 H 97 - My Orders Last 24 Hours: My Active Orders 05/16/20 16:30 EKG 12 Lead [EKG Documentation Completion] [RC] STAT Sodium Chloride 0.9% [Normal Saline] 1,000 ml IV ONETIME - Assessment/Plan Last 24 Hours: My Active Orders 05/16/20 16:30 EKG 12 Lead [EKG Documentation Completion] [RC] STAT Sodium Chloride 0.9% [Normal Saline] 1,000 ml IV ONETIME
[2020-05-16 17:02] VITALS: BP 119/55; PULSE 100
== END 2020-05-16 17:30 | disposition left against medical advice (07) ==
LOC: JD.ED 16:14
DX: T50.901A Poisoning by unspecified drugs, medicaments and biological substances, accidental (unintentional), initial encounter (principal); R00.0 Tachycardia, unspecified; E66.9 Obesity, unspecified; Z68.34 Body mass index [BMI] 34.0-34.9, adult; Z72.0 Tobacco use
CPT/HCPCS: 93005; 99284; J7030; 99283

== ENCOUNTER 2020-06-09 13:12 | Emergency (ER) | payer SELFPAY ==
--- NOTE | 2020-06-09 13:34 | EDM.PDOC ---
ED HPI GENERAL MEDICAL PROBLEM - General Chief Complaint: Drug or Alcohol Abuse Stated Complaint: [facility] Time Seen by Provider: 06/09/20 13:12 - History of Present Illness INITIAL COMMENTS - FREE TEXT/NARRATIVE: 25-year-old male presents the emergency room brought in by EMS after an apparent overdose. The patient became unresponsive to the point where apparently he fell hitting his head. This followed after taking half of a M 30. The patient became unresponsive. Bystander CPR was started. Police for the first to arrive administered 8 mg of intranasal Narcan and he was awake alert and oriented during transport from EMS. The patient is unable to give much more history at this point. However the patient states he said to me close calls in the last 6 or 7 weeks and wants treatment. Patient denies any other injuries associated with this most unfortunate event. The patient has a bit of a cough however he had this prior to the event and thinks it is actually getting better over time his was tested for influenza and Covid a week and a half ago and all this was negative. Chest Pain Score (Numeric/FACES): 4 - Related Data Allergies Allergy/AdvReac Type Severity Reaction Status Date / Time No Known Allergies Allergy Verified 06/09/20 13:20 Home Meds: Home Meds . [No Known Home Meds] 01/02/19 [History] Past Medical History - Past Health History Medical/Surgical History: Denies Medical/Surgical History HEENT History: Reports: Impaired Vision Other HEENT History: wears glasses Gastrointestinal History: Reports: Other (See Below) Other Gastrointestinal History: ulcers Musculoskeletal History: Reports: Fracture Other Musculoskeletal History: "Broken foot, ankle, tib/fib" Psychiatric History: Reports: Addiction, Depression Endocrine/Metabolic History: Reports: Obesity/BMI 30+ - Infectious Disease History Infectious Disease History: Reports: C-Difficile - Past Surgical History HEENT Surgical History: Reports: None GI Surgical History: Reports: None Musculoskeletal Surgical History: Reports: Other (See Below) Social & Family History - Family History Family Medical History: No Pertinent Family History - Caffeine Use Caffeine Use: Reports: None - Living Situation & Occupation Living situation: Reports: Single, Other (At a friend's place) 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) ED ROS GENERAL - Review of Systems Review Of Systems: See Below Constitutional: Reports: No Symptoms HEENT: Reports: No Symptoms Respiratory: Reports: Cough (His cough is improving) Cardiovascular: Reports: Chest Pain, Other (He has some rib pain after some brief CPR prior to arrival) GI/Abdominal: Reports: No Symptoms : Reports: No Symptoms Musculoskeletal: Reports: Other (Chest wall pain ) Skin: Reports: No Symptoms Neurological: Reports: No Symptoms Psychiatric: Denies: Homicidal Ideation, Mood Lability, Suicidal Ideation ED EXAM, GENERAL - Physical Exam Exam: See Below Exam Limited By: No Limitations General Appearance: Alert, No Apparent Distress Eye Exam: Bilateral Eye: Normal Inspection, PERRL Ears: Normal External Exam, Normal Canal, Hearing Grossly Normal, Normal TMs Nose: Normal Inspection, Normal Mucosa, No Blood Throat/Mouth: Normal Inspection, Normal Lips, Normal Teeth, Normal Gums, Normal Oropharynx, Normal Voice, No Airway Compromise Head: Other (He has some superficial abrasions over his forehead however he has no significant laceration or areas of ecchymosis) Neck: Normal Inspection, Supple, Non-Tender, Full Range of Motion. No: Lymphadenopathy (L), Lymphadenopathy (R), Tender Lateral, Tender Midline Respiratory/Chest: No Respiratory Distress, Lungs Clear, Normal Breath Sounds, Other (He has some tenderness near the xiphoid process with palpation) Cardiovascular: Normal Peripheral Pulses, Regular Rate, Rhythm, No Edema, No Gallop, No JVD, No Murmur, No Rub GI/Abdominal: Normal Bowel Sounds, Soft, Non-Tender Back Exam: Normal Inspection. No: CVA Tenderness (L), CVA Tenderness (R) Course - Vital Signs Last Recorded V/S: Last Vital Signs Temp 37.0 C 06/09/20 13:15 Pulse 112 H 06/09/20 13:15 Resp 18 06/09/20 13:15 BP 140/71 06/09/20 13:15 Pulse Ox 100 06/09/20 13:15 - Orders/Labs/Meds Orders: Active Orders 24 hr Category Date Time Status EKG Documentation Completion [RC] STAT Care 06/09/20 13:27 Active Lactated Ringers [Ringers, Lactated] 1,000 ml Med 06/09/20 13:45 Active IV ASDIRECTED Medication Orders Lactated Ringer's (Ringers, Lactated) 1,000 mls @ 150 mls/hr IV ASDIRECTED ALMITA Last Admin: 06/09/20 14:06 Dose: 150 mls/hr Documented by: MARY Labs: Laboratory Tests 06/09/20 06/09/20 06/09/20 Range/Units 13:30 13:30 13:58 WBC 14.71 H (4.23-9.07) K/mm3 RBC 4.96 (4.63-6.08) M/mm3 Hgb 15.0 (13.7-17.5) gm/dl Hct 43.6 (40.1-51.0) % MCV 87.9 (79.0-92.2) fl MCH 30.2 (25.7-32.2) pg MCHC 34.4 (32.2-35.5) g/dl RDW Std Deviation 40.9 (35.1-43.9) fL Plt Count 248 (163-337) K/mm3 MPV 10.9 (9.4-12.3) fl Neut % (Auto) 83.3 H (34.0-67.9) % Lymph % (Auto) 10.3 L (21.8-53.1) % [place] % (Auto) 5.7 (5.3-12.2) % Eos % (Auto) 0.3 L (0.8-7.0) Baso % (Auto) 0.1 (0.1-1.2) % Neut # (Auto) 12.24 H (1.78-5.38) K/mm3 Lymph # (Auto) 1.51 (1.32-3.57) K/mm3 [place] # (Auto) 0.84 H (0.30-0.82) K/mm3 Eos # (Auto) 0.05 (0.04-0.54) K/mm3 Baso # (Auto) 0.02 (0.01-0.08) K/mm3 Sodium (136-145) mEq/L Potassium (3.5-5.1) mEq/L Chloride (98-107) mEq/L Carbon Dioxide (21-32) mEq/L Anion Gap (5-15) BUN (7-18) mg/dL Creatinine (0.7-1.3) mg/dL Est Cr Clr Drug Dosing mL/min Estimated GFR (MDRD) (>60) mL/min BUN/Creatinine Ratio (14-18) Glucose (74-106) mg/dL Calcium (8.5-10.1) mg/dL Total Bilirubin (0.2-1.0) mg/dL AST (15-37) U/L ALT (16-63) U/L Alkaline Phosphatase (46-116) U/L Troponin I (0.00-0.056) ng/mL Total Protein (6.4-8.2) g/dl Albumin (3.4-5.0) g/dl Globulin gm/dL Albumin/Globulin Ratio (1-2) Urine Color Yellow (Yellow) Urine Appearance Clear (Clear) Urine pH 5.5 (5.0-8.0) Ur Specific [place] > or = 1.030 (1.005-1.030) Urine Protein 2+ H (Negative) Urine Glucose (UA) Trace H (Negative) Urine Ketones Negative (Negative) Urine Occult Blood Negative (Negative) Urine Nitrite Negative (Negative) Urine Bilirubin Negative (Negative) Urine Urobilinogen 1.0 (0.2-1.0) Ur Leukocyte Esterase Negative (Negative) U Hyaline Cast (Auto) 0-5 (0-5) /lpf Urine RBC 0-5 (0-5) /hpf Urine WBC 0-5 (0-5) /hpf Ur Squamous Epith Cells 0-5 (0-5) /hpf Amorphous Sediment Few H (NOT SEEN) /hpf Urine Bacteria Moderate H (FEW) /hpf Urine Mucus Moderate H (FEW) /hpf Salicylates (2.8-20) mg/dL Urine Opiates Screen Negative (KPUVAS=434) Ur Buprenorphine Scrn Presumptive positive (CUTOFF=10) Ur Oxycodone Screen Presumptive positive H (BTE1BL=658) Urine Methadone Screen Negative (WEK4WS=996) Ur Propoxyphene Screen Negative (YNLPQT=934) Acetaminophen (10-30) ug/mL Ur Barbiturates Screen Negative (EHQVAA=245) Ur Tricyclics Screen Negative (EHYCVO=662) Ur Phencyclidine Scrn Negative (CUTOFF=25) Ur Amphetamine Screen Negative (GAJNNJ=769) U Methamphetamines Scrn Negative (EUFTNZ=522) U Benzodiazepines Scrn Negative (UUYHKY=465) U Cocaine Metab Screen Negative (MSMGQG=245) U Marijuana (THC) Screen Presumptive positive H (CUTOFF=50) Ethyl Alcohol (0.00) gm% SARS-CoV-2 RNA (QUINTEN) (NEGATIVE) 0306/09/20 06/09/20 Range/Units 13:58 13:58 14:46 WBC (4.23-9.07) K/mm3 RBC (4.63-6.08) M/mm3 Hgb (13.7-17.5) gm/dl Hct (40.1-51.0) % MCV (79.0-92.2) fl MCH (25.7-32.2) pg MCHC (32.2-35.5) g/dl RDW Std Deviation (35.1-43.9) fL Plt Count (163-337) K/mm3 MPV (9.4-12.3) fl Neut % (Auto) (34.0-67.9) % Lymph % (Auto) (21.8-53.1) % [place] % (Auto) (5.3-12.2) % Eos % (Auto) (0.8-7.0) Baso % (Auto) (0.1-1.2) % Neut # (Auto) (1.78-5.38) K/mm3 Lymph # (Auto) (1.32-3.57) K/mm3 [place] # (Auto) (0.30-0.82) K/mm3 Eos # (Auto) (0.04-0.54) K/mm3 Baso # (Auto) (0.01-0.08) K/mm3 Sodium 139 (136-145) mEq/L Potassium 3.8 (3.5-5.1) mEq/L Chloride 102 (98-107) mEq/L Carbon Dioxide 26 (21-32) mEq/L Anion Gap 14.8 (5-15) BUN 10 (7-18) mg/dL Creatinine 0.9 (0.7-1.3) mg/dL Est Cr Clr Drug Dosing 126.56 mL/min Estimated GFR (MDRD) > 60 (>60) mL/min BUN/Creatinine Ratio 11.1 L (14-18) Glucose 115 H (74-106) mg/dL Calcium 8.5 (8.5-10.1) mg/dL Total Bilirubin 0.9 (0.2-1.0) mg/dL AST 26 (15-37) U/L ALT 42 (16-63) U/L Alkaline Phosphatase 96 (46-116) U/L Troponin I < 0.017 (0.00-0.056) ng/mL Total Protein 7.6 (6.4-8.2) g/dl Albumin 3.9 (3.4-5.0) g/dl Globulin 3.7 gm/dL Albumin/Globulin Ratio 1.1 (1-2) Urine Color (Yellow) Urine Appearance (Clear) Urine pH (5.0-8.0) Ur Specific [place] (1.005-1.030) Urine Protein (Negative) Urine Glucose (UA) (Negative) Urine Ketones (Negative) Urine Occult Blood (Negative) Urine Nitrite (Negative) Urine Bilirubin (Negative) Urine Urobilinogen (0.2-1.0) Ur Leukocyte Esterase (Negative) U Hyaline Cast (Auto) (0-5) /lpf Urine RBC (0-5) /hpf Urine WBC (0-5) /hpf Ur Squamous Epith Cells (0-5) /hpf Amorphous Sediment (NOT SEEN) /hpf Urine Bacteria (FEW) /hpf Urine Mucus (FEW) /hpf Salicylates 0.5 L (2.8-20) mg/dL Urine Opiates Screen (TBQQSB=865) Ur Buprenorphine Scrn (CUTOFF=10) Ur Oxycodone Screen (XJJ3TM=331) Urine Methadone Screen (DWC5UJ=730) Ur Propoxyphene Screen (UNGPKA=628) Acetaminophen 0 L (10-30) ug/mL Ur Barbiturates Screen (FGLQAN=747) Ur Tricyclics Screen (KYMTQG=507) Ur Phencyclidine Scrn (CUTOFF=25) Ur Amphetamine Screen (LJFWYH=311) U Methamphetamines Scrn (PXGNPP=577) U Benzodiazepines Scrn (XVSMTH=377) U Cocaine Metab Screen (JIZYXN=067) U Marijuana (THC) Screen (CUTOFF=50) Ethyl Alcohol 0.00 (0.00) gm% SARS-CoV-2 RNA (QUINTEN) Negative (NEGATIVE) Meds: Medications Generic Name Dose Route Start Last Admin Trade Name Freq PRN Reason Stop Dose Admin Lactated Ringer's 1,000 mls @ 150 mls/hr 06/09/20 13:45 06/09/20 14:06 Ringers, Lactated IV 150 mls/hr ASDIRECTED ALMITA Administration Discontinued Medications Generic Name Dose Route Start Last Admin Trade Name Freq PRN Reason Stop Dose Admin Naloxone HCl 1 mg 06/09/20 14:55 06/09/20 15:15 Narcan IVPUSH 06/09/20 14:56 1 mg ONETIME ONE Administration Ondansetron HCl 4 mg 06/09/20 14:56 06/09/20 15:15 Zofran IVPUSH 06/09/20 14:57 4 mg ONETIME ONE Administration - Re-Assessments/Exams Free Text/Narrative Re-Assessment/Exam: 06/09/20 14:34 Patient is continuing to do well CT is unremarkable see labs for results. Patient really wants help to prevent this from happening again and wants treatment for his addiction disorder. I discussed this with [facility], they will have somebody come and evaluate him for crisis bed. 06/09/20 16:50 The patient almost an hour ago required a little bit of Narcan as his O2 saturation was dropping into the upper 80s and he was still sort of awake when he was talking everything came back good and he has done well since he received the Narcan. I did discuss the M30 situation with poison control and they recommend we observe him for 6 hours after the Narcan. I did discuss this with the patient and initially he was in agreement to it however he then decided he must get home and underwent. And will sign out AGAINST MEDICAL ADVICE. The patient is advised to follow-up with [facility] they have walk-in a ointments at 8:00 0 Departure - Departure Time of Disposition: 16:51 Disposition: Against Medical Advice 07 Clinical Impression: Overdose - Discharge Information Referrals: PCP,None [Primary Care Provider] - Forms: ED Department Discharge Additional Instructions: Follow-up with [facility] services tomorrow [phone] Sepsis Event Note (ED) - Evaluation Sepsis Screening Result: No Definite Risk - Focused Exam Vital Signs: Vital Signs Temp Pulse Resp BP Pulse Ox 06/09/20 13:15 37.0 C 112 H 18 140/71 100 - My Orders Last 24 Hours: My Active Orders 06/09/20 13:27 EKG Documentation Completion [RC] STAT 06/09/20 13:45 Lactated Ringers [Ringers, Lactated] 1,000 ml IV ASDIRECTED - Assessment/Plan Last 24 Hours: My Active Orders 06/09/20 13:27 EKG Documentation Completion [RC] STAT 06/09/20 13:45 Lactated Ringers [Ringers, Lactated] 1,000 ml IV ASDIRECTED
[2020-06-09] MEDS ORDERED: Lactated Ringers 1,000 ML IV SCH (13:45)
--- NOTE | 2020-06-09 14:13 | CT ---
Head CT Technique: Multiple axial sections through the brain were obtained. Intravenous contrast was not utilized. Reconstructed coronal and sagittal images were obtained. Comparison: Prior brain MRI of 10/08/[address] study of 10/03/18. Findings: Ventricles along with basal cisterns and sulci over the convexities are within normal limits for the patient's age. No abnormal parenchymal densities are seen. No evidence of intracranial hemorrhage. No midline shift or mass-effect is seen. Bone window settings were reviewed which show the visualized mastoid sinuses and paranasal sinuses to show nothing acute. Incidental note of minimal mucosal thickening within the sphenoid sinus. No acute calvarial finding is seen. Impression: 1. Minimal mucosal thickening within the sphenoid sinus which is believed to be incidental. 2. Nothing acute is seen on noncontrast head CT exam. Diagnostic code #2
--- NOTE | 2020-06-09 14:14 | CR ---
Chest: Portable view of the chest was obtained. Comparison: Prior chest x-ray of 07/08/19. Heart size and mediastinum are normal. Lungs are clear. No acute osseous finding is seen. Impression: 1. Nothing acute is seen on portable chest x-ray. Diagnostic code #1
[2020-06-09 14:43] LABS: ACETAMINOPHEN 0 ug/mL (10-30)
[2020-06-09] MEDS ORDERED: Naloxone 2 MG/2 ML Syringe IVPUSH ONE (14:55)
[2020-06-09] MEDS ORDERED: Ondansetron 4 MG/2 ML SDV IVPUSH ONE (14:56)
[2020-06-09 17:37] VITALS: BP 108/29; PULSE 88
== END 2020-06-09 17:05 | disposition left against medical advice (07) ==
LOC: JD.ED 13:12
DX: T40.2X2A Poisoning by other opioids, intentional self-harm, initial encounter (principal); T40.412A Poisoning by fentanyl or fentanyl analogs, intentional self-harm, initial encounter; E66.9 Obesity, unspecified; Z68.32 Body mass index [BMI] 32.0-32.9, adult; Z20.822 Contact with and (suspected) exposure to COVID-19
CPT/HCPCS: 36415; 70450; 71045; 80053; 80143; 80179; 80306; 80307; 81001; 84484; 85025; 87635; 93005; 96374; 96375; 99285; J2310; J2405; J7120; 99284; U0002

== ENCOUNTER 2021-04-08 02:50 | Emergency (ER) | payer SELFPAY ==
[2021-04-08 02:58] VITALS: BP 123/101; PULSE 109
[2021-04-08] MEDS ORDERED: Sodium Chloride 0.9% 10 ML Syringe FLUSH PRN (02:58)
--- NOTE | 2021-04-08 03:03 | EDM.PDOCBH ---
ED HPI GENERAL MEDICAL PROBLEM - General Chief Complaint: Drug or Alcohol Abuse Stated Complaint: [facility] Time Seen by Provider: 04/08/21 02:54 Source of Information: Reports: Patient, EMS History Limitations: Reports: No Limitations - History of Present Illness INITIAL COMMENTS - FREE TEXT/NARRATIVE: The patient presents by [facility] for an overdose. The patient's g irlfriend could not get in contact with him. She went to his apartment and found him unresponsive and not breathing. She started CPR and called 911. The hydrologist's deputy got there first and ventilated the patient and gave him narcan. That did not help much. EMS arrived started an IV and gave him narcan 2mg IV. The patient does admit to crushing and inhaling pills with fentanyl in them. He is alert and orientated now. He has no complaints. He has been here a few times for overdoses in the past. Onset: Sudden Duration: Minutes: Improves with: Reports: None Worsens with: Reports: None Associated Symptoms: Reports: No Other Symptoms - Related Data Allergies Allergy/AdvReac Type Severity Reaction Status Date / Time No Known Allergies Allergy Verified 06/09/20 13:20 Home Meds: Home Meds . [No Known Home Meds] 01/02/19 [History] Past Medical History - Past Health History Medical/Surgical History: Denies Medical/Surgical History HEENT History: Reports: Impaired Vision Other HEENT History: wears glasses Gastrointestinal History: Reports: Other (See Below) Other Gastrointestinal History: ulcers Musculoskeletal History: Reports: Fracture Other Musculoskeletal History: "Broken foot, ankle, tib/fib" Psychiatric History: Reports: Addiction, Depression Endocrine/Metabolic History: Reports: Obesity/BMI 30+ - Infectious Disease History Infectious Disease History: Reports: C-Difficile - Past Surgical History HEENT Surgical History: Reports: None GI Surgical History: Reports: None Musculoskeletal Surgical History: Reports: Other (See Below) Social & Family History - Family History Family Medical History: No Pertinent Family History - Caffeine Use Caffeine Use: Reports: Soda - Living Situation & Occupation Living situation: Reports: Single, Other (At a friend's place) 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) ED ROS GENERAL - Review of Systems Review Of Systems: See Below Constitutional: Reports: No Symptoms HEENT: Reports: No Symptoms Respiratory: Reports: No Symptoms Cardiovascular: Reports: No Symptoms Endocrine: Reports: No Symptoms GI/Abdominal: Reports: No Symptoms : Reports: No Symptoms Musculoskeletal: Reports: No Symptoms Skin: Reports: No Symptoms Neurological: Reports: No Symptoms ED EXAM, BEHAVIORAL HEALTH - Physical Exam Exam: See Below Exam Limited By: No Limitations General Appearance: Alert, No Apparent Distress Ears: Normal External Exam Nose: Normal Inspection Head: Atraumatic, Normocephalic Neck: Normal Inspection Respiratory/Chest: No Respiratory Distress, Lungs Clear, Normal Breath Sounds Cardiovascular: Regular Rate, Rhythm, No Edema, No Murmur, No Rub GI/Abdominal: Soft, Non-Tender, No Organomegaly COURSE, BEHAVIORAL HEALTH COMP - Course Vital Signs: Last Vital Signs Temp 98.4 F 04/08/21 02:55 Pulse 109 H 04/08/21 02:55 Resp 22 H 04/08/21 02:55 BP 123/101 H 04/08/21 02:55 Pulse Ox 98 04/08/21 02:55 Orders, Labs, Meds: Active Orders 24 hr Category Date Time Status Cardiac Monitoring [RC] . DIRECTED Care 04/08/21 02:58 Active Peripheral IV Care [RC] . DIRECTED Care 04/08/21 02:58 Active DRUG SCREEN, URINE [URCHEM] Stat Lab 04/08/21 02:58 Stop Req Sodium Chloride 0.9% [Saline Flush] Med 04/08/21 02:58 Active 10 ml FLUSH ASDIRECTED PRN Peripheral IV Insertion Adult [OM.PC] Stat Oth 04/08/21 02:58 Ordered Medication Orders Sodium Chloride (Sodium Chloride 0.9% 10 Ml Syringe) 10 ml FLUSH ASDIRECTED PRN PRN Reason: Keep Vein Open Last Admin: 04/08/21 03:02 Dose: 10 ml Documented by: HAM Laboratory Tests 04/08/21 04/08/21 Range/Units 03:12 03:12 WBC 16.40 H (4.23-9.07) K/mm3 RBC 4.98 (4.63-6.08) M/mm3 Hgb 15.0 (13.7-17.5) gm/dl Hct 43.5 (40.1-51.0) % MCV 87.3 (79.0-92.2) fl MCH 30.1 (25.7-32.2) pg MCHC 34.5 (32.2-35.5) g/dl RDW Std Deviation 40.7 (35.1-43.9) fL Plt Count 280 (163-337) K/mm3 MPV 10.6 (9.4-12.3) fl Neut % (Auto) 75.7 H (34.0-67.9) % Lymph % (Auto) 17.9 L (21.8-53.1) % [place] % (Auto) 5.5 (5.3-12.2) % Eos % (Auto) 0.5 L (0.8-7.0) Baso % (Auto) 0.2 (0.1-1.2) % Neut # (Auto) 12.40 H (1.78-5.38) K/mm3 Lymph # (Auto) 2.94 (1.32-3.57) K/mm3 [place] # (Auto) 0.91 H (0.30-0.82) K/mm3 Eos # (Auto) 0.08 (0.04-0.54) K/mm3 Baso # (Auto) 0.03 (0.01-0.08) K/mm3 Sodium 141 (136-145) mEq/L Potassium 3.8 (3.5-5.1) mEq/L Chloride 102 (98-107) mEq/L Carbon Dioxide 26 (21-32) mEq/L Anion Gap 16.8 H (5-15) BUN 16 (7-18) mg/dL Creatinine 1.1 (0.7-1.3) mg/dL Est Cr Clr Drug Dosing TNP Estimated GFR (MDRD) > 60 (>60) mL/min BUN/Creatinine Ratio 14.5 (14-18) Glucose 115 H (70-99) mg/dL Calcium 8.2 L (8.5-10.1) mg/dL Total Bilirubin 0.5 (0.2-1.0) mg/dL AST 27 (15-37) U/L ALT 46 (16-63) U/L Alkaline Phosphatase 88 (46-116) U/L Total Protein 7.5 (6.4-8.2) g/dl Albumin 4.2 (3.4-5.0) g/dl Globulin 3.3 gm/dL Albumin/Globulin Ratio 1.3 (1-2) Ethyl Alcohol 0.00 (0.00) gm% Medications Generic Name Dose Route Start Last Admin Trade Name Freq PRN Reason Stop Dose Admin Sodium Chloride 10 ml 04/08/21 02:58 04/08/21 03:02 Sodium Chloride 0.9% 10 Ml Syringe FLUSH 10 ml ASDIRECTED PRN Administration Keep Vein Open Discontinued Medications Generic Name Dose Route Start Last Admin Trade Name Freq PRN Reason Stop Dose Admin Ondansetron HCl 4 mg 04/08/21 03:06 04/08/21 03:10 Ondansetron 4 Mg/2 Ml Sdv IVPUSH 04/08/21 03:07 4 mg ONETIME ONE Administration Re-Assessment/Re-Exam: I ordered an IV saline lock, labs and a urine drug screen. He was vomiting so I ordered some zofran. He has been here about 3 hours and no other problems. I will discharge him home. Departure - Departure Time of Disposition: 06:05 Disposition: Home, Self-Care 01 Condition: Good Clinical Impression: Accidental overdose Qualifiers: Encounter type: initial encounter Qualified Code(s): T50.901A - Poisoning by unspecified drugs, medicaments and biological substances, accidental (unintentional), initial encounter Opioid overdose Qualifiers: Encounter type: initial encounter Injury intent: accidental or unintentional Qualified Code(s): T40.2X1A - Poisoning by other opioids, accidental (unintentional), initial encounter - Discharge Information *PRESCRIPTION DRUG MONITORING PROGRAM REVIEWED*: Not Applicable *COPY OF PRESCRIPTION DRUG MONITORING REPORT IN PATIENT ALICIA: Not Applicable Forms: ED Department Discharge Additional Instructions: Stop taking fentanyl. The next time it may kill you. Follow up with [facility] for help stopping. [facility] . Sepsis Event Note (ED) - Evaluation Sepsis Screening Result: No Definite Risk - Focused Exam Vital Signs: Vital Signs Temp Pulse Resp BP Pulse Ox 04/08/21 02:55 98.4 F 109 H 22 H 123/101 H 98 - My Orders Last 24 Hours: My Active Orders 04/08/21 02:58 Cardiac Monitoring [RC] . DIRECTED Peripheral IV Care [RC] . DIRECTED DRUG SCREEN, URINE [URCHEM] Stat Sodium Chloride 0.9% [Saline Flush] 10 ml FLUSH ASDIRECTED PRN Peripheral IV Insertion Adult [OM.PC] Stat - Assessment/Plan Last 24 Hours: My Active Orders 04/08/21 02:58 Cardiac Monitoring [RC] . DIRECTED Peripheral IV Care [RC] . DIRECTED DRUG SCREEN, URINE [URCHEM] Stat Sodium Chloride 0.9% [Saline Flush] 10 ml FLUSH ASDIRECTED PRN Peripheral IV Insertion Adult [OM.PC] Stat
[2021-04-08] MEDS ORDERED: Ondansetron 4 MG/2 ML SDV IVPUSH ONE (03:06)
== END 2021-04-08 06:15 | disposition home or self-care (01) ==
LOC: JD.ED 02:50
DX: T40.2X1A Poisoning by other opioids, accidental (unintentional), initial encounter (principal); E66.9 Obesity, unspecified; Z68.30 Body mass index [BMI] 30.0-30.9, adult
CPT/HCPCS: 36415; 80053; 80307; 85025; 96374; 99284; J2405

== ENCOUNTER 2021-06-22 15:28 | Emergency (ER) | payer SELFPAY ==
[2021-06-22 16:10] VITALS: BP 141/72; PULSE 77
[2021-06-22] MEDS ORDERED: HYDROmorphone 1 MG/ML Syringe IM ONE (17:23)
== END 2021-06-22 17:30 | disposition home or self-care (01) ==
LOC: JD.ED 15:28
DX: L05.91 Pilonidal cyst without abscess (principal); E66.9 Obesity, unspecified; Z72.0 Tobacco use; Z68.32 Body mass index [BMI] 32.0-32.9, adult
CPT/HCPCS: 96372; 99282; J1170; 99284

== ENCOUNTER 2021-06-29 10:30 | Emergency (ER) | payer SELFPAY ==
[~2021-06-29 10:30] MED LIST: propofoL 100 ML ONE
[2021-06-29] MEDS ORDERED: Lactated Ringers 1,000 ML IV PRN (10:40)
[2021-06-29] MEDS ORDERED: Ketamine 500 mg/10 ML MDV IV ONE ×2 (11:00→12:28)
[2021-06-29] MEDS ORDERED: Atropine 1% Ophth Soln 5 ML BOTTLE SL PRN ×2 (11:04→17:08)
[2021-06-29] MEDS ORDERED: Succinylcholine 200 MG/10 ML MDV IV ONE (11:15)
[2021-06-29] MEDS ORDERED: Rocuronium 50 MG/5 ML Vial IV ONE ×3 (11:43→12:57)
[2021-06-29] MEDS ORDERED: Sodium Bicarbonate 8.4% 50 MEQ/50 ML Syringe IV ONE ×2 (11:53→11:54)
[2021-06-29] MEDS ORDERED: Piperacillin/Tazobactam 4.5 GM in Sodium Chloride 0.9% 100 ML IV ONE (12:00)
[2021-06-29] MEDS ORDERED: Rocuronium 50 MG/5 ML Vial ONE (12:27)
[2021-06-29] MEDS ORDERED: Sodium Bicarbonate 150 MEQ in Dextrose 5% in Water 1,000 ML IV ONE ×4 (12:45)
[2021-06-29] MEDS ORDERED: LORazepam 2 MG/ML SDV ONE ×2 (12:46→15:03)
[2021-06-29] MEDS ORDERED: LORazepam 2 MG/ML SDV IV ONE (12:48)
[2021-06-29] MEDS ORDERED: propofoL 100 ML IV SCH (13:00)
[2021-06-29] MEDS ORDERED: Albuterol 0.083% 2.5 MG/3 ML Neb Soln ONE (13:07)
[2021-06-29] MEDS ORDERED: LORazepam 2 MG/ML SDV IVPUSH ONE ×2 (15:05→15:25)
[2021-06-29] MEDS ORDERED: Sodium Chloride 0.9% 1,000 ML ONE (16:03)
[2021-06-29 18:07] VITALS: BP 111/80; PULSE 155
== END 2021-06-29 16:30 ==
LOC: JD.ED 10:30
DX: T40.2X1A Poisoning by other opioids, accidental (unintentional), initial encounter (principal); E66.9 Obesity, unspecified; Z68.30 Body mass index [BMI] 30.0-30.9, adult; Z20.822 Contact with and (suspected) exposure to COVID-19
CPT/HCPCS: 31500; 36415; 36556; 36600; 70450; 71045; 80053; 80306; 80307; 81001; 82803; 83605; 83735; 84484; 85025; 85379; 85610; 85730; 87040; 87070; 87205; 87635; 92950; 92960; 93005; 96365; 96366; 96367; 96375; 96376; 99285; A9270; J0330; J2060; J2543; J2704; J3490; J7030; J7060; J7120; 93010; 99291; 99292; U0002